=== PATIENT | male | born 1995 | race Caucasian/White ===

== ENCOUNTER 2020-04-07 07:32 | Emergency (ER) | payer SELFPAY ==
[~2020-04-07] VITALS: Ht 188 cm; Wt 97.5 kg
--- NOTE | 2020-04-07 08:01 | Emergency Department Note ---
History of Present Illnes History of Present Illness Chief Complaint: Extremity Trauma/Pain History of Present Illness This is a 24 year old male PAIN FROM LEFT LOWER BACK DOWN LEFT LEG X 2 WKS. NO TRAUMA NO INJURY NO HX SCIATICA. PT WITH [facility] FROM [facility] (says he was there yesterday for same, xray done and sent home). PT AMBULATORY STEADY GAIT. NAD. PLEASANT. 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 Arrival Mode: [facility] [employer]: See EMS Report Onset (how long ago): month(s) (2 months worse in 2 weeks) Location: left lower lumbar Quality: pain Radiation: Reports extremity (left leg to toes) Severity: moderate Onset quality: gradual Timing of current episode: constant Chronicity: new Context: Reports recent illness Relieving factors: rest Exacerbating factors: other (lifting) Associated symptoms: Reports other (no bowel/bladder incontinence, no motor/sensory deficits); Denies fever/chills, Denies weakness Treatments prior to arrival: none Past Medical/Family History Physician Review I have reviewed the patient's past medical and family history. Any updates have been documented here. 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) Physically hurt or threatened: No Family History Family history of heart diseas: No Other Any Pre-Existing Lines (PICC,: No Review of Systems Review of Systems Constitutional: Reports no symptoms EENTM: Reports no symptoms Cardiovascular: Reports no symptoms Respiratory: Reports no symptoms Gastrointestinal: Reports no symptoms Genitourinary: Reports no symptoms Musculoskeletal: Reports as per HPI, Reports back pain Integumentary: Reports no symptoms Neurological: Reports no symptoms Psychological: Reports no symptoms Endocrine: Reports no symptoms Hematological/Lymphatic: Reports no symptoms Physical Exam Related Data Allergies: Coded Allergies: No Known Allergies (Unverified , 04/07/20) Triage Vital Signs Vital Signs Date Time Temp Pulse Resp B/P (MAP) Pulse Ox O2 Delivery O2 Flow Rate FiO2 04/07/20 07:36 97.8 62 14 126/77 100 Room Air Vital signs reviewed: Yes Physical Exam CONSTITUTIONAL Constitutional: Present well-developed, Present well-nourished HENT HENT: Present normocephalic, Present atraumatic, Present oropharynx clear/moist, Present nose normal HENT L/R: Present left ext ear normal, Present right ext ear normal EYES Eyes: Reports PERRL, Reports conjunctivae normal NECK Neck: Present ROM normal PULMONARY Pulmonary: Present effort normal, Present breath sounds normal CARDIOVASCULAR Cardiovascular: Present regular rhythm, Present heart sounds normal, Present capillary refill normal, Present normal rate; Absent murmur GASTROINTESTINAL Abdominal: Present soft, Present nontender, Present bowel sounds normal GENITOURINARY Genitourinary: Present exam deferred SKIN Skin: Present warm, Present dry, Present other (multiple healing ulcerative lesions on arms & legs, none appear infected) MUSCULOSKELETAL Musculoskeletal: Present ROM normal, Present other (mild tenderness left lower lumbar, negative SLR, nl DTR's) NEUROLOGICAL Neurological: Present alert, Present oriented x 3, Present no gross motor or sensory deficits; Absent sensory deficit, Absent abnormal gait, Absent weakness PSYCHOLOGICAL Psychological: Present mood/affect normal, Present judgement normal Assessment & Plan Medical Decision Making [facility] home Reassessment Reassessment no true emergency - explained he needs PCP and likely outpatient MRI, Will give Rx for po Toradol and Robaxin Assessment & Plan Final Impression: (1) Sciatica Depart Disposition: HOME, SELF-CARE Last Vital Signs Date Time Temp Pulse Resp B/P (MAP) Pulse Ox O2 Delivery O2 Flow Rate FiO2 04/07/20 07:36 97.8 62 14 126/77 100 Room Air JEROMY TAMAYO MD Apr 07, 2020 08:01
--- OUTSIDE RECORDS SUMMARY | 2020-04-07 08:18 | XMS REPORT | Clinical Summary ---
Author Author CHITRA SvitStyleMin[facility]StartSpanish[facility] Address Unknown Phone Unavailable Care Team Providers Care Service Cashier Name Role Phone PCP Unavailable Allergies Comments Active Allergy Reactions Severity Noted Date Penicillins 03/16/2020 Medications Not on file Active Problems Problem Noted Date Cellulitis of left lower extremity 03/19/2020 Acute midline back pain, unspecified back location 0 03/17/2020 Acute bacterial endocarditis 03/17/2020 IV drug abuse 03/17/2020 Encounters Care Team Description Date Type Specialty 03/19/2020 Orders Only General Internal Az Deepak Law MD Becker, MD Joe Valdovinos, MD Maksim Zuniga, Elo Marcano MD Acute midline back pain, unspecified waldemar k location (Primary Dx); Subacute bacterial endocarditis; Acute bacterial endocarditis; IV drug abuse (HCC); Cellulitis of left lower extremity; Septic embolism (HCC); Bacterial endocarditis, unspecified chronicity; Tricuspid valve regurgitation due to infection 03/16/2020 [facility] General Internal Az mena - Encounter 03/19/2020 03/16/2020 Orders Only General Internal Az mena 03/16/2020 Travel after 04/07/2019 Social History Date Tobacco Use Types Packs/Day Years Used Current Every Day Smoker Alcohol Use Drinks/Week oz/Week Comments No Alcohol Habits Answer Date Recorded How often do you have a drink containing alcohol? Never 03/19/2020 How many drinks containing alcohol do you have on No t asked a typical day when you are drinking? How often do you have six or more drinks on one Not asked occasion? Sex Assigned at Date Recorded Not on file Industry Job Start Date Occupation Not on file Not on file Not on file Travel End Travel History Travel Start No recent travel history available. Last Filed Vital Signs Time Taken Vital Sign Reading 03/19/2020 2:44 PM CDT Blood Pressure 147/69 03/19/2020 2:44 PM CDT Pulse 82 03/19/2020 2:44 PM CDT Temperature 36.7 C (98 F) 03/19/2020 2:44 PM CDT Respiratory Rate 18 03/19/2020 2:44 PM CDT Oxygen Saturation 100% - Inhaled Oxygen - Concentration 03/16/2020 12:42 PM CDT Weight 93 kg (205 lb) 03/16/2020 12:42 PM CDT Height 198.1 cm (6' 6") 03/16/2020 12:42 PM CDT Body Mass Index 23.69 Plan of Treatment Not on file Procedures Comments Procedure Name Priority Date/Time Associated Diag nosis REPORT OF PROCEDURE - 03/21/2020 ENDOSCOPY SCAN 10:00 AM CDT ECG 12-LEAD Routine 03/19/2020 4:28 PM CDT Procedure Note - Interface, External Ris In - 03/19/2020 4:27 PM CDT Ventricula r Rate 74 BPM Atrial Rate 74 BPM P-R Interval 152 ms QRS Duration 88 ms Q-T Interval 386 ms QTC Calculatio n(Bazett) 428 ms P [place] 47 degrees R [place] 9 degrees T [place] 65 degrees Normal sinus rhythm Normal ECG No previous ECGs available ECG 12-LEAD SAUNDRA 03/19/2020 4:28 PM CDT LIMITED 2D ECHOCARDIOGRAM Today 03/19/2020 11:52 AM CDT VANCOMYCIN LEVEL, TROUGH Timed 03/18/2020 4:[address] THORACIC SPINE WITH IV SAUNDRA 03/17/2020 CONTRAST 11:[address] CHEST WITHOUT IV SAUNDRA 03/17/2020 CONTRAST 11:18 PM CDT SARS-COV2/RT-PCR ([facility] & SAUNDRA 03/17/2020 REF LABS) 9:58 PM CDT HEPATITIS PANEL, ACUTE Routine 03/17/2020 5:42 PM CDT HIV-1 ANTIGEN WITH Routine 03/17/2020 HIV-1/2 ANTIBODY 5:42 PM CDT D-DIMER Routine 03/17/2020 5:42 PM CDT FERRITIN Routine 03/17/2020 5:42 PM CDT CONT WAVE PULSED DOPPLER Routine 03/17/2020 4:56 PM CDT LACTATE DEHYDROGENASE Add-On 03/17/2020 ([facility]) 11:28 AM CDT BASIC METABOLIC PANEL (7) STAT 03/17/2020 11:[address] LUMBAR SPINE WITH IV STAT 03/17/2020 CONTRAST 3:25 AM CDT ECG 12-LEAD STAT 03/16/2020 10:28 PM CDT SARS-COV2/RT-PCR ([facility] & STAT 03/16/2020 REF LABS) 9:54 PM CDT BLOOD CULTURE STAT 03/16/2020 9:54 PM CDT BLOOD CULTURE STAT 03/16/2020 9:54 PM CDT CBC W/PLT COUNT & AUTO STAT 03/16/2020 DIFFERENTIAL 9:53 PM CDT C-REACTIVE PROTEIN STAT 03/16/2020 9:53 PM CDT COMPREHENSIVE METABOLIC STAT 03/16/2020 PANEL 9:53 PM CDT TROPONIN I STAT 03/16/2020 9:53 PM CDT CBC W/PLT COUNT & AUTO STAT 03/16/2020 DIFFERENTIAL 9:53 PM CDT VENOUS DOPPLER LEG, LEFT STAT 03/16/2020 6:00 PM CDT XR CHEST 1 VIEW STAT 03/16/2020 PORTABLE/BEDSIDE 2:29 PM CDT after 04/07/2019 Results * EKG-SCANNED (03/21/2020 10:00 AM CDT) Narrative Performed At This result has an attachment that is n ot available. * ECG 12 lead (03/19/2020 4:28 PM CDT) Only the most recent of 2 results within the time period is included. Specimen Narrative Performed At Ventricular Rate 74 BPM GE MUSE Atrial Rate 74 BPM P-R Interval 152 ms QRS Duration 88 ms Q-T Interval 386 ms QTC Calculation(Bazett) 428 ms P [place] 47 degrees R [place] 9 degrees T [place] 65 degrees Normal sinus rhythm Normal ECG No previous ECGs available Confirmed by MD CASTRO JOSEPH P ([id number]) on 03/20/2020 6:32:06 AM Procedure Note Interface, External Ris In - 03/20/2020 6:32 AM CDT Ventricular Rate 74 BPM Atrial Rate 74 BPM P-R Interval 152 ms QRS Duration 88 ms Q-T Interval 386 ms QTC Calculation(Bazett) 428 ms P [place] 47 degrees R [place] 9 degrees T [place] 65 degrees Normal sinus rhythm Normal ECG No previous ECGs available Confirmed by MD CASTRO JOSEPH P ([id number]) on 03/20/2020 6:32:06 AM Performing Organization Address City/State/Zipcode Ph one Number GE MUSE * Limited 2D Echocardiogram (03/19/2020 11:52 AM CDT) Ejection Fraction [facility] Specimen Narrative Performed At Transthoracic Echocardiography Report (TTE) [facility] Demographics [facility] Patient Name DIYA FLOWERS e of Study 03/19/2020 [id number] GenderMale Visit Number [id number] Rickie fraser [id number] Room Number 2109 Number Date of Birth1995 Referring Physician HITESH BRADFORD Age24 year(s) 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 Fran Farrar MD [facility] Physician Procedure Type of Study TTE procedure:LIMITED 2D ECHOCARDIOGRAM (Routine) Indications:Suspected infective endocar ditis with positive cultures or new murmur. Clinical History HGB 11.0 HCT 35.3 % HCV, IV DRUG USER (METH, HEROIN), SMOKE R Height: 78 inches Weight: 92.99 kg (205 lbs) BSA: 2.28 m^2 BMI: 23.69 kg/m^2 HR: 70 bpm BP: 110/776 mmHg Summary The left ventricle is chamber size (by vol index) is normal (male - LVED vol - 34-74ml/m2). All of the LV segmen ts contract normally . LVEF by Matias's method of disk assessment is normal (>60%) . A linear echodense mass is visualized o n the tricuspid valve. The mass measures 8.65 mm x 3.47 mm. Severe tricuspid regurgitation. RV chamber size is mildly enlarged . Gl obal RV systolic function is mildly reduced . Previous Study No prior studies available for comparis on. Signature Findings Technical Quality: Technically adequate exam. Left The left ventricle is chamber size (by vol index) is normal Ventricle(male - LVED vol - 34- 74ml/m2). LV septal thickness is normal (0.6-1.1cm) . LV posterior wall thickness is mildly increased (1.2-1.4cm) . All of the LV segments contract normally . Global LV s ystolic function normal . LVEF by Matias's method of disk ass essment is normal (>60%) . Left AtriumLA size is normal (16-34 ml/m2) . RightRV chamber size is mildly enlarged . VentricleGlobal RV systolic fun ction is mildly reduced . Right Atrium RA size is normal. Aortic Valve Mild AoV cusp thickening. Mitral Valve Mild MV leaflet thickening . TricuspidA linear echodense mas s is visualized on the tricuspid valve. ValveThe mass measures 8.65 mm x 3.47 mm. Severe tric uspid regurgitation. Pulmonic Normal PV structure. Valve AortaAortic root size ( SInus of Valsalva diameter) is normal . PericardiumNo pericardial effusion is visualized. Chambers/Structures Left Atrium LA Volume: 61.46 ml LA Area: 20.55 cm^2 LA Vol. Index: 27 ml/m^2 Left Ventricle LVIDd: 4.51 cm LVIDs: 2.74 cm LV Septum Diastolic: 0.99 cm LV PW Diastolic: 1.28 cm LV FS: 39.3 % LVEDV Matias's:151.73 ml LVESV Matias's:58.61 ml LVEDVI: 67 ml/m^2 LVEF Matias's: 61.4 % LVESVI: 26 ml/m^2 LVOT Diameter: 1.91 cm Right Atrium RA Vol. (Sngl Plane): 75.84 ml Aorta Ao Root S of Fern.: 3.16 cm Doppler/Quantitative Measurements LVOT LVOT Diameter: 1.91 cm LVOT Area: 2.87 cm^2 Procedure Note Interface, External Ris In - 03/19/2020 2:11 PM CDT Transthoracic Echocardiography Report (TTE) Demographics Patient Name DIYA FLOWERS Date of Study 03/19/2020 Gender Male Visit Number [id number] Race Unknown Room Number 2109 Number Date of 1995 Referring Physician HITESH BRADFORD Age 24 year(s) Division Plant Engineer Dottie Mo RDCS [employer] [place] Prince, Interpreting Donta Castro MD RDCS Physician Procedure Type of Study TTE procedure:LIMITED 2D ECHOCARDIOGRAM (Routine) Indications:Suspected infective endocarditis with positive cultures or new murmur. Clinical History HGB 11.0 HCT 35.3 % HCV, IV DRUG USER (METH, HEROIN), SMOKER Height: 78 inches Weight: 92.99 kg (205 lbs) BSA: 2.28 m^2 BMI: 23.69 kg/m^2 HR: 70 bpm BP: 110/776 mmHg Summary The left ventricle is chamber size (by vol index) is normal (male - LVED vol - 34-74ml/m2). All of the LV segments contract normally . LVEF by Matias's method of disk assessment is normal (>60%) . A linear echodense mass is visualized on the tricuspid valve. The mass measures 8.65 mm x 3.47 mm. Severe tricuspid regurgitation. RV chamber size is mildly enlarged . Global RV systolic function is mildly reduced . Previous Study No prior studies available for comparison. Signature Findings Technical Quality: Technically adequate exam. Left The left ventricle is chamber size (by vol index) is normal Ventricle (male - LVED vol - 34-74ml/m2). LV septal thickness is normal (0.6-1.1cm). LV posterior wall thickness is mildly increased (1.2-1.4cm) . All of the LV segments contract normally . Global LV systolic function normal . LVEF by Matias's method of disk assessment is normal (>60%) . Left Atrium LA size is normal (16-34 ml/m2) . Right RV chamber size is mildly enlarged . Ventricle Global RV systolic function is mildly reduced . Right Atrium RA size is normal. Aortic Valve Mild AoV cusp thickening. Mitral Valve Mild MV leaflet thickening. Tricuspid A linear echodense mass is visualized on the tricuspid valve. Valve The mass measures 8.65 mm x 3.47 mm. Severe tricuspid regurgitation. Pulmonic Normal PV structure. Valve Aorta Aortic root size (SInus of Valsalva diameter) is normal . Pericardium No pericardial effusion is visualized. Chambers/Structures Left Atrium LA Volume: 61.46 ml LA Area: 20.55 cm^2 LA Vol. Index: 27 ml/m^2 Left Ventricle LVIDd: 4.51 cm LVIDs: 2.74 cm LV Septum Diastolic: 0.99 cm LV PW Diastolic: 1.28 cm LV FS: 39.3 % LVEDV Matias's:151.73 ml LVESV Matias's:58.61 ml LVEDVI: 67 ml/m^2 LVEF Matias's: 61.4 % LVESVI: 26 ml/m^2 LVOT Diameter: 1.91 cm Right Atrium RA Vol. (Sngl Plane): 75.84 ml Aorta Ao Root S of Fern.: 3.16 cm Doppler/Quantitative Measurements LVOT LVOT Diameter: 1.91 cm LVOT Area: 2.87 cm^2 Performing Organization Address City/State/Zipcode Ph one Number [facility] * Vancomycin level, trough (03/18/2020 4:50 PM CDT) Vancomycin Tr 13.1 10.0 - 20.0 ug/mL [facility] Specimen Blood Narrative Performed At Mess Cook ID - ASHLEE Gutierrez [facility] Performing Organization Address City/State/[facility] Ph one Number [facility] [address] [address] MED[address] * CT spine thoracic with IV contrast (03/17/2020 11:18 PM CDT) Specimen Narrative Performed At FINAL REPORT [facility] RIS EXAM: CT thoracic spine without contras t CLINICAL HISTORY: Lower thoracic spine pain and recent bacteremia. TECHNIQUE: CT of the thoracic spine was performed without intravenous contrast administration.This exam w as performed according to our departmental dose optimization program which includes automated exposure control, adjustment of the mA and/or kV according to patient's size and/or use of iterative reconstructive technique. COMPARISON:None FINDINGS: Vertebral body heights and alignment ar e maintained. The articular facets and posterior elements are intac t. The intervertebral disc space heights are preserved. There is n o acute fracture. There is no significant spinal canal or neural foraminal stenosis. There is no prevertebral soft tissue sw elling. The paraspinal soft tissues are unremarkable. There are multiple bilateral pulmonary nodules as well as small patchy opacities in the right lower lob e. The pulmonary nodules have a peripheral and basilar predominance. Some nodules are cavitary. 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 There is a partially imaged simple cyst in the right kidney. IMPRESSION: Multiple pulmonary nodules, which given history are compatible with septic emboli. No gross abnormality in the thoracic sp ine. Signed: Leo Gonzalez MD Report Verified Date/Time: 0 23:40:45 Procedure Note Interface, External Ris In - 03/17/2020 11:43 PM CDT FINAL REPORT EXAM: CT thoracic spine without contrast CLINICAL HISTORY: Lower thoracic spine pain and recent bacteremia. TECHNIQUE: CT of the thoracic spine was performed without intravenous contrast administration. This exam was performed according to our departmental dose optimization program which includes automated exposure control, adjustment of the mA and/or kV according to patient's size and/or use of iterative reconstructive technique. COMPARISON: None FINDINGS: Vertebral body heights and alignment are maintained. The articular facets and posterior elements are intact. The intervertebral disc space heights are preserved. There is no acute fracture. There is no significant spinal canal or neural foraminal stenosis. There is no prevertebral soft tissue swelling. The paraspinal soft tissues are unremarkable. There are multiple bilateral pulmonary nodules as well as small patchy opacities in the right lower lobe. The pulmonary nodules have a peripheral and basilar predominance. Some nodules are cavitary. There is an aberrant right subclavian artery. There is a partially imaged simple cyst in the right kidney. IMPRESSION: Multiple pulmonary nodules, which given history are compatible with septic emboli. No gross abnormality in the thoracic spine. Signed: Leo Gonzalez MD Report Verified Date/Time: 03/17/2020 23:40:45 Performing Organization Address City/State/Zipcode Ph one Number [facility] * CT chest without IV contrast (03/17/2020 11:18 PM CDT) Specimen Narrative Performed At FINAL REPORT [facility] EXAM: CT of the chest, without contrast CLINICAL HISTORY:evaluate for pneum onia and cavitary lesions Technique: CT of the chest was performe d without intravenous contrast administration. This exam was performed according to our departmental dose optimization program which include s automated exposure control, adjustment of the mA and/or kV accordin g to patient's size and/or use of iterative reconstructive technique. COMPARISON:None FINDINGS: LOWER NECK: Within normal limits. AIRWAYS AND LUNGS: Patent central trach eobronchial tree. Multilobar peripheral and basilar nodular opacitie s, some of which are cavitary. Small patchy opacities in the right eliecer g base are noted. Findings are compatible with septic emboli. Calcifie d right lower lobe granuloma. PLEURA: No pleural effusion or pneumoth orax. VESSELS: Within normal limits. HEART: Normal heart size. No pericardia l effusion. DALJIT AND MEDIASTINUM: Within normal mane its. VISUALIZED UPPER ABDOMEN: Partially argentina ged simple right upper pole renal cyst. SOFT TISSUES: Within normal limits. BONES: Within normal limits. IMPRESSION: Findings compatible with septic emboli. Signed: Leo Gonzalez MD Report Verified Date/Time: 0 23:33:12 Procedure Note Interface, External Ris In - 03/17/2020 11:35 PM CDT FINAL REPORT EXAM: CT of the chest, without contrast CLINICAL HISTORY: evaluate for pneumonia and cavitary lesions Technique: CT of the chest was performed without intravenous contrast administration. This exam was performed according to our departmental dose optimization program which includes automated exposure control, adjustment of the mA and/or kV according to patient's size and/or use of iterative reconstructive technique. COMPARISON: None FINDINGS: LOWER NECK: Within normal limits. AIRWAYS AND LUNGS: Patent central tracheobronchial tree. Multilobar peripheral and basilar nodular opacities, some of which are cavitary. Small patchy opacities in the right lung base are noted. Findings are compatible with septic emboli. Calcified right lower lobe granuloma. PLEURA: No pleural effusion or pneumothorax. VESSELS: Within normal limits. HEART: Normal heart size. No pericardial effusion. DALJIT AND MEDIASTINUM: Within normal limits. VISUALIZED UPPER ABDOMEN: Partially imaged simple right upper pole renal cyst. SOFT TISSUES: Within normal limits. BONES: Within normal limits. IMPRESSION: Findings compatible with septic emboli. Signed: Leo Gonzalez MD Report Verified Date/Time: 03/17/2020 23:33:12 Performing Organization Address City/State/Zipcode Ph one Number GE RIS * SARS-CoV2/RT-PCR (Symptomatic ONLY) (03/17/2020 9:58 PM CDT) Only the most recent of 2 results within the time period is included. SARS-COV2/RT-PCR Negative Not Detected, Negative [facility] SARS-COV-2 [facility] Specimen Other Narrative Performed At Negative result for this test determine s that SARS-CoV-2 RNA was not present in the specimen above the Limit of Detecti on (LOD).However, Negative results do [facility] not preclude SARS-CoV-2 infection and s hould not be used as the sole basis for treatment or patient management decisio ns. Negative results must be combined with clinical observations, patient his tory, and epidemiological information. A false negative result may occur if a sp ecimen is improperly collected, transported or handled.A false nega tive result should be considered if patient's recent exposures or clinical presentation indicate that COVID-19 (SARS-CoV-2) is likely and diagnostic t ests for other causes of illness are negative.Re-testing should be consi dered in cases of suspected false negatives. The limit of detection for this assay i s 800 copies/mL. This SARS CoV-2 test is a real-time RT- PCR test intended for the qualitative detection of nucleic acid from SARS-CoV -2 in a nasopharyngeal swab specimen collected from individuals suspected of COVID-19 by their healthcare provider. This test has not been Food and Drug Ad ministration (FDA) cleared or approved.This is a modified version of an approved Emergency Use Authorization (EUA) and is in the proce ss of review by the FDA. Once authorized by the FDA, the issued EUA w ill be effective until the declaration that circumstances exist justifying the authorization of the emergency use of in vitro diagnostic tests for detection an d/or diagnosis of COVID-19 is terminated under Section 564(b)(2) of the Act or t he EUA is revoked under Section 564(g) of the Act. Fact Sheet for Healthcare Providers: https://www.[employer]/sites/default/files/product/documents/Fact_Sheet_HC_Provi jzve_Ptza_BJKR-MbF-4.pdf Fact Sheet for Healthcare Patients: https://www.[employer]/sites/default/files/product/documents/Fact_Sheet_Patients _Ncwi_SXIW-CtY-0.pdf Performing Laboratory: [address] [place] [address] Performing Organization Address City/State/Zipcode Ph one [facility] [address] [place] [address] [address] [facility] * HIV-1 Antigen with HIV-1/2 Antibody (03/17/2020 5:42 PM CDT) HIV-1 Antigen with HIV Nonreactive Nonreactive 1&2 Antibody [facility] Specimen Blood Narrative Performed At Mess Cook ID - DB [facility] Performing Organization Address [facility] one [address] [facility] * Hepatitis panel, acute (03/17/2020 5:42 PM CDT) Hep A IgM Nonreactive Nonreactive [facility] Hep B C IgM Nonreactive Nonreactive [facility] Hepatitis C Ab Reactive (A) Nonreactive [facility] HBsAg Screen Nonreactive Nonreactive [facility] Specimen Blood Narrative Performed At Mess Cook ID - DB [facility] Performing Organization Address [facility] one [address] [facility] * D-dimer (03/17/2020 5:42 PM CDT) D-Dimer, Quant 0.54 (H) <0.50 MG/L FEU [facility] Specimen Blood Narrative Performed At Intended Use: The D-Dimer Assay can be used to aid in the diagnosis of Deep Vein Thrombosis (DVT) and Pulmonary Embolism Disease (PED) . [facility] In patients with low pre-test probabili ty, various studies concerning STA Liatest D-dimer test have reported that with a cutoff value of 0.50 MG/L FEU, the Negative Predictive Value (NPV) reg arding the exclusion of thrombosis is within 95-100% range. Performing Organization Address [facility]/State/Zipcode Ph one Number [facility] [address] [place], [place] [address] [facility] * Ferritin (03/17/2020 5:42 PM CDT) Ferritin 187.46 5.00 - 275.00 ng/mL [facility] Specimen Blood Narrative Performed At Mess Cook ID - ASHLEE Gutierrez [facility] Performing Organization Address City/[facility]/[place] Ph one Number [address] [facility] * Lactate dehydrogenase (LDH) (03/17/2020 11:28 AM CDT) LDH 562 (H)Comment: Specimen 125 - 220 U/L [facility] Specimen Blood Narrative Performed At Mess Cook ID - ASHLEE Gutierrez [facility] Performing Organization Address [facility]/[place] Ph one Number [address] [facility] * Basic metabolic panel (Na, K+, Cl, CO2, Glu, Ca, BUN, Cr) (03/17/2020 11:28 AM CDT) Sodium 136 136 - 145 meq/L [facility] Potassium 4.0Comment: Specimen slightly 3.5 - 5.1 meq/L [facility] Chloride 105 98 - 107 meq/L [facility] CO2 25 22 - 29 meq/L [facility] BUN 2 (L) 7 - 21 mg/dL [facility] Creatinine 0.55 (L)Comment: Specimen 0.57 - 1.25 mg/dL [facility] slightly hemolyzed [facility] Glucose 97 70 - 105 mg/dL [facility] Calcium 9.2 8.4 - 10.2 mg/dL [facility] EGFR 180Comment: ESTIMATED GFR IS mL/min/1.73 sq m NOT ACCURATE CREATININE [facility] CLEARANCE IN PREDICTING GLOMERULAR FILTRATION RATE. ESTIMATED GFR IS NOT APPLICABLE FOR DIALYSIS PATIENTS. Specimen Blood Narrative Performed At Mess Cook ID - PIAYA L [facility] Performing Organization Address City/State/Zipcode Ph one Number [facility] [address] [place], [place] [address] * CT spine lumbar with IV contrast (03/17/2020 3:25 AM CDT) Specimen Narrative Performed At FINAL REPORT [facility] CT, SPINE, LUMBAR, WITH IV CONTRAST CLINICAL HISTORY: Back pain, uncomplica ian (Ped 0-18y) Back Pain, Hx of IVDA and Endocarditis COMPARISON: None TECHNIQUE: Multiple axial CT images of the lumbar spine were obtained with contrast. Sagittal and coronal 2D reconstructions were created. This exam was performed according to [facility] departmental dose-optimization program, which includ es automated exposure control, adjustment of the mA and/or kV accordin g to patient size and/or use of the iterative reconstruction techniq ue. FINDINGS: No acute osseous fracture or traumatic malalignment. No suspicious osseous lesion. No paraspinal mass. Right kidney 4.2 cm cyst. No pathologic enhancement. Disc levels: L1-2: No significant disc bulge, centra l spinal canal or neural foraminal stenosis. L2-3: No significant disc bulge, centra l spinal canal or neural foraminal stenosis. L3-4: Small disc bulge without high-gra de osseous central spinal canal or neural foraminal stenosis. L4-5: Small disc bulge without high-gra de osseous central spinal canal or neural foraminal stenosis. L5-S1: Small disc bulge without high-gr marcia osseous central spinal canal stenosis. Moderate bilateral neur al foraminal stenosis present. Lungs demonstrate basilar groundglass o pacities. Right lung base calcified granuloma. IMPRESSION: Bibasilar pulmonary groundglass opaciti es. Commonly reported imaging features of (COVID-19 or viral) pneumon ia are present. Other processes such as influenza pneumonia a nd organizing pneumonia, as can be seen with drug toxicity and conn ective tissue disorder, can cause a similar imaging pattern. CT lumbar spine without evidence of acu te osseous abnormality. No pathologic enhancement or CT evidence o f discitis/osteomyelitis. Small disc bulges at L3-4, L4-5 and L5- S1. L5-S1 moderate bilateral neural foraminal stenosis. Right kidney 4.2 cm cyst. Signed: Darryl Austin MD Report Verified Date/Time: 0 03:48:21 Procedure Note Interface, External Ris In - 03/17/2020 3:[address] CDT FINAL REPORT CT, SPINE, LUMBAR, WITH IV CONTRAST CLINICAL HISTORY: Back pain, uncomplicated (Ped 0-18y) Back Pain, Hx of IVDA and Endocarditis COMPARISON: None TECHNIQUE: Multiple axial CT images of the lumbar spine were obtained with contrast. Sagittal and coronal 2D reconstructions were created. This exam was performed according to our departmental dose-optimization program, which includes automated exposure control, adjustment of the mA and/or kV according to patient size and/or use of the iterative reconstruction technique. FINDINGS: No acute osseous fracture or traumatic malalignment. No suspicious osseous lesion. No paraspinal mass. Right kidney 4.2 cm cyst. No pathologic enhancement. Disc levels: L1-2: No significant disc bulge, central spinal canal or neural foraminal stenosis. L2-3: No significant disc bulge, central spinal canal or neural foraminal stenosis. L3-4: Small disc bulge without high-grade osseous central spinal canal or neural foraminal stenosis. L4-5: Small disc bulge without high-grade osseous central spinal canal or neural foraminal stenosis. L5-S1: Small disc bulge without high-grade osseous central spinal canal stenosis. Moderate bilateral neural foraminal stenosis present. Lungs demonstrate basilar groundglass opacities. Right lung base calcified granuloma. IMPRESSION: Bibasilar pulmonary groundglass opacities. Commonly reported imaging features of (COVID-19 or viral) pneumonia are present. Other processes such as influenza pneumonia and organizing pneumonia, as can be seen with drug toxicity and connective tissue disorder, can cause a similar imaging pattern. CT lumbar spine without evidence of acute osseous abnormality. No pathologic enhancement or CT evidence of discitis/osteomyelitis. Small disc bulges at L3-4, L4-5 and L5-S1. L5-S1 moderate bilateral neural foraminal stenosis. Right kidney 4.2 cm cyst. Signed: Darryl Austin MD Report Verified Date/Time: 03/17/2020 03:48:21 Performing Organization Address [facility] Ph one Number GE RIS * Blood Culture - Routine (Left Venipuncture) (03/16/2020 9:54 PM CDT) Only the most recent of 2 results within the time period is included. Result No growth in 5 days [facility] Specimen Blood Performing Organization Address [facility] one Number [place] [address] [phone] [place] [address] * C-Reactive Protein (03/16/2020 9:53 PM CDT) CRP 3.96 (H) 0.00 - 0.50 mg/dL [facility] Specimen Blood Narrative Performed At Mess Cook ID - PIAYA L [facility] Performing Organization Address [facility] one Number [place] [address] [facility] * CBC with platelet count + automated diff (03/16/2020 9:53 PM CDT) WBC 9.6 3.5 - 10.5 K/L [facility] RBC 4.39 (L) 4.63 - 6.08 M/L [facility] Hemoglobin 11.0 (L) 13.7 - 17.5 GM/DL [facility] Hematocrit 35.3 (L) 40.1 - 51.0 % [facility] MCV 80.4 79.0 - 92.2 fL [facility] MCH 25.1 (L) 25.7 - 32.2 pg [facility] MCHC 31.2 (L) 32.3 - 36.5 GM/DL [facility] RDW 18.6 (H) 11.6 - 14.4 % [facility] Platelets 322 150 - 450 K/CU MM [facility] MPV 11.0 9.4 - 12.4 fL [facility] nRBC 0 0 - 0 /100 WBC [facility] % Neutros 56 % [facility] % Lymphs 34 % [facility] % Monos 9 % [facility] % Eos 1 % [facility] % Baso 0 % [facility] # Neutros 5.34 1.78 - 5.38 K/L [facility] # Lymphs 3.30 1.32 - 3.57 K/L [facility] # Monos 0.86 (H) 0.30 - 0.82 K/L [facility] # Eos 0.05 0.04 - 0.54 K/L [facility] # Baso 0.01 0.01 - 0.08 K/L [facility] Immature 0 0 - 1 % [facility] Granulocytes-Relative [facility] Specimen Blood Performing Organization Address City/State/Zipcode Ph one Number [facility] [address] [place], [place] [address] [facility] * Troponin I (03/16/2020 9:53 PM CDT) Troponin I 0.02 0.00 - 0.03 ng/mL [facility] Specimen Blood Narrative Performed At Troponin I (TnI) levels must be interpreted in the co ntext of the presenting symptoms and the clinical findings. Elevated TnI leve ls indicate myocardial [facility] damage, but are not specific for ischem ic heart disease. Elevated TnI levels are seen in patients with other cardiac con ditions (including myocarditis and congestive heart failure), and slight T nI elevations occur in patients with other conditions, including sepsis, winnie al failure, acidosis, acute neurological disease, and persistent tachyarrhythmia . Mess Cook ID - PIAYA L Performing Organization Address City/State/Zipcode Ph one Number [facility] [address] [place], [place] [address] [facility] * Comprehensive metabolic panel (03/16/2020 9:53 PM CDT) Protein, Total Comment: Specimen markedly hemolyzed [facility] B#[id number] This is a corrected result. Previous result was 10.0 gm/dL on 03/16/2020 at 2331 CDT Albumin Comment: Specimen markedly hemolyzed [facility]#[id number] This is a corrected result. Previous result was 3.6 g/dL on 03/16/2020 at 2331 CDT Alkaline Phosphatase Comment: [facility] Specimen markedly hemolyzed [facility] B#[id number] This is a corrected result. Previous result was 127 U/L on 03/16/2020 at 2331 CDT Total Bilirubin Comment: Specimen markedly hemolyzed [facility] B#[id number] This is a corrected result. Previous result was 0.3 mg/dL on 03/16/2020 at 2331 CDT Sodium Comment: Specimen markedly hemolyzed [facility] B#[id number] This is a corrected result. Previous result was 133 meq/L on 03/16/2020 at 2331 CDT Potassium Comment: Specimen markedly hemolyzed [facility]#[id number] This is a corrected result. Previous result was 5.2 meq/L on 03/16/2020 at 2331 CDT Chloride Comment: Specimen markedly hemolyzed [facility]#[id number] This is a corrected result. Previous result was 102 meq/L on 03/16/2020 at 2331 CDT CO2 Comment: Specimen markedly hemolyzed [facility] B#[id number] This is a corrected result. Previous result was 22 meq/L on 03/16/2020 at 2331 CDT BUN Comment: Specimen markedly hemolyzed [facility] B#[id number] This is a corrected result. Previous result was 3 mg/dL on 03/16/2020 at 2331 CDT Creatinine Comment: Specimen markedly hemolyzed [facility] B#[id number] This is a corrected result. Previous result was 0.62 mg/dL on 03/16/2020 at 2331 CDT Glucose Comment: Specimen markedly hemolyzed [facility] B#[id number] This is a corrected result. Previous result was 90 mg/dL on 03/16/2020 at 2331 CDT Calcium Comment: Specimen markedly hemolyzed [facility] B#[id number] This is a corrected result. Previous result was 9.0 mg/dL on 03/16/2020 at 2331 CDT AST Comment: Specimen markedly hemolyzed [facility] B#[id number] This is a corrected result. Previous result was 69 U/L on 03/16/2020 at 2331 CDT ALT Comment: Specimen markedly hemolyzed [facility] B#[id number] This is a corrected result. Previous result was 31 U/L on 03/16/2020 at 2331 CDT EGFR Comment: ESTIMATED GFR IS NOT [facility] ACCURATE CREATININE CLEARANCE IN PREDICTING GLOMERULAR FILTRATION RATE. ESTIMATED GFR IS NOT APPLICABLE FOR DIALYSIS PATIENTS. This is a corrected result. Previous result was 157 mL/min/1.73 sq m on 03/16/2020 at 2331 CDT Specimen Blood Narrative Performed At Mess Cook ID - PIAYA L [facility] Performing Organization Address City/State/Zipcode Ph one Number [address] [address] [facility] * Venous doppler leg, left (03/16/2020 6:00 PM CDT) Ejection Fraction [facility] Specimen Impressions Performed At Left Impression [facility] 1. There is no deep venous obstruction in the common femoral, profunda [facility] femoral, femoral, popliteal or posterio r tibial veins. 2. The peroneal veins could not be visu alized. 3. There is no superficial venous obstr uction in the great saphenous vein. Conclusions Summary Venous duplex imaging and compression o f the left lower extremity were performed. The veins were adequately vi sualized. The left venous system was patent and compressible with no sushma dence of thrombus where visualzied. The venous Doppler waveforms were phasi c with respiration. Signature Velocities are measured in cm/s ; Diame ters are measured in cm Narrative Performed At [facility] - Lower Extremities DVT Study [facility] Demographics [facility] Patient NameDIYA FLOWERS Date of Study 03/16/2020 24 Visit [id number] Date of 1995 Referring Dharmesh Portillo id Room Number ED21 Physician Division Plant Engineer Bernice Belcher RV T Physician Procedure Type of Study: Veins: Lower Extremities DVT Study, SUSI OUS DOPPLER LEG, LEFT. Indications for Study:Left Leg Swelling . Patient Status:STAT. Study Location:Portable. Technical Quality:Adequate visualizatio n. Procedure Note Interface, External Ris In - 03/17/2020 11:49 AM CDT [facility] - Lower Extremities DVT Study Demographics Patient Name DIYA FLOWERS Date of Study 03/16/2020 Age 24 Visit Number [id number] Gender Male Accession Number [id number] Date of 1995 Referring Dharmesh Sotelo Room Number ED21 Physician Division Plant Engineer Malou Mo, Interpreting Barby Ferrer, T Physician Procedure Type of Study: Veins: Lower Extremities DVT Study, VENOUS DOPPLER LEG, LEFT. Indications for Study:Left Leg Swelling. Patient Status:STAT. Study Location:Portable. Technical Quality:Adequate visualization. Impressions Left Impression 1. There is no deep venous obstruction i n the common femoral, profunda femoral, femoral, popliteal or posterior tibial veins. 2. The peroneal veins could not be visua lized. 3. There is no superficial venous obstru ction in the great saphenous vein. Conclusions Summary Venous duplex imaging and compression of the left lower extremity were performed. The veins were adequately visualized. The left venous system was patent and compressible with no evidence of thrombus where visualzied. The venous Doppler waveforms were phasic with respiration. Signature Velocities are measured in cm/s ; Diameters are measured in cm Performing Organization Address City/State/Zipcode Ph one Number [facility] * XR chest 1 view portable / bedside (03/16/2020 2:29 PM CDT) Specimen Narrative Performed At FINAL REPORT [facility] INDICATION: sob COMPARISON: None TECHNIQUE: Single frontal view of the c hest. FINDINGS: Lungs and pleura: Clear lungs. No effus ion. Heart and mediastinum: Normal heart siz e. Unremarkable mediastinal contours. Osseous structures: No acute abnormalit y. Other: None. IMPRESSION: No acute intrathoracic abnormality. Signed: Michael Lee MD Report Verified Date/Time: 0 14:52:01 [place] Location: [address] Neuro Re ading Room Procedure Note Interface, External Ris In - 03/16/2020 2:54 PM CDT FINAL REPORT INDICATION: sob COMPARISON: None TECHNIQUE: Single frontal view of the chest. FINDINGS: Lungs and pleura: Clear lungs. No effusion. Heart and mediastinum: Normal heart size. Unremarkable mediastinal contours. Osseous structures: No acute abnormality. Other: None. IMPRESSION: No acute intrathoracic abnormality. Signed: Michael Lee MD Report Verified Date/Time: 03/16/2020 14:52:01 [place] Location: [address] Neuro Reading Room Performing Organization Address City/State/Zipcode Ph one Number [facility] after 04/07/2019 Advance Directives For more information, please contact: [facility] [address] [place] [address] Date Inactivated Comments Code Status Date Activated 03/20/2020 12:49 AM Full Code 03/17/2020 6:00 AM This code status was determined by: Patient
--- OUTSIDE RECORDS SUMMARY | 2020-04-07 08:18 | XMS REPORT | Clinical Summary ---
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
--- OUTSIDE RECORDS SUMMARY | 2020-04-07 08:19 | XMS REPORT | Continuity of Care Document ---
Author Author [facility] Organization [facility] Address [address] [place] [address] Phone Unavailable Care Team Providers Care Wrecking Supervisor Name Role Phone Asked, Pcp No PCP Unavailable SOCORRO BARROSO Attphys Unavailable Socorro Barroso MD Attphys Juaquin De La Cruz MD Attphys [phone] Roberto Diaz MD Attphys Jeet Schaeffer MD Attphys Jeet SCHAEFFER Admphys Unavailable Payers Payer Name Policy Type Policy Number Effective Date Expiration Date S ource Problems Condition Name Condition Details Condition Category Status Onset Date Resolution Date Last Treatment Date Treating Clinician Comments Source Cellulitis of left lower extremity Cellulitis of left lower extr emity Disease Active 2020-03-19 00:00:00 [facility] Acute midline back pain, unspecified back location Acu te midline back pain, unspecified back location Disease Active 2020-03-17 00:00:00 [facility] Acute bacterial endocarditis Acute bacterial endocarditis Disease Active 2020-03-17 00:00:00 [facility] IV drug abuse IV drug abuse Disease Active 2020-03-17 00:00:00 [facility] Allergies, Adverse Reactions, Alerts Allergy Name Allergy Type Status Severity Reaction(s) Onset Date Inacti ve Date Treating Clinician Comments Source Penicillins Propensity to adverse reactions Active 2019 00:00:00 [facility] vancomycin DA Active AR 2020-02-12 00:00:00 [facility] Penicillins DA Active U 2020-02-10 00:00:00 [facility] Penicillins DA Active U 2018-07-29 00:00:00 [facility] Penicillins DA Active U 2018-07-19 00:00:00 [facility] Penicillin Propensity to adverse reactions to drug Active 2017-09-28 00:00:00 Juancho reddy Social History Social Habit Start Date Stop Date Quantity Comments Source History SDOH Alcohol Std Drinks [facility] History SDOH Alcohol Binge [facility] Sex Assigned At [facility] History SDOH Alcohol Frequency 2020-03-19 00:00:00 2020-03-19 00:00:0 0 1 [facility] Alcohol intake 2017-09-28 00:00:00 2017-09-28 00:00:00 Current non-drinker of alcohol (finding) Juancho Marquez Smoking Status Start Date Stop Date Source Current every day smoker 2020-03-19 00:00:00 [facility] Medications This patient has no known medications. Vital Signs Vital Name Observation Time Observation Value Comments Source Systolic blood pressure 2020-03-19 14:44:00 147 mm[Hg] [facility] Diastolic blood pressure 2020-03-19 14:44:00 69 mm[Hg] [facility] Heart rate 2020-03-19 14:44:00 82 /min [facility] Body temperature 2020-03-19 14:44:00 36.67 Key [facility] Respiratory rate 2020-03-19 14:44:00 18 /min [facility] Oxygen saturation in Arterial blood by Pulse oximetry 03-19 14:44:00 100 [facility] height 2020-03-16 12:42:00 198.1 cm [facility] Body weight Measured 2020-03-16 12:42:00 92.987 kg [facility] BMI 2020-03-16 12:42:00 23.69 kg/m2 [facility] Procedures Procedure Date / Time Performed Performing Clinician [facility] e REPORT OF PROCEDURE - ENDOSCOPY SCAN 2020-03-21 10:00:38 Pro vider, Default Scanning [facility] ECG 12-LEAD 2020-03-19 16:28:06 Unknown, Hl7 Doctor [facility] LIMITED 2D ECHOCARDIOGRAM 2020-03-19 11:52:35 Sejal Bradfordak Macho [facility] VANCOMYCIN LEVEL, TROUGH 2020-03-18 16:50:[facility] 2020-03-17 23:18:00 [facility] CT THORACIC SPINE WITH IV CONTRAST 2020-03-17 23:18:00 Sejal Bradford [facility] SARS-COV2/RT-PCR ([facility]) 2020-03-17 21:58:00 Sejal Bradford [facility] FERRITIN 2020-03-17 17:42:00 [facility] D-DIMER 2020-03-17 17:42:00 [facility] HIV-1 ANTIGEN WITH HIV-1/2 ANTIBODY 2020-03-17 17:42:00 Hi Bradford [facility] HEPATITIS PANEL, ACUTE 2020-03-17 17:42:00 Tamir [facility] CONT WAVE PULSED DOPPLER 2020-03-17 16:56:49 [facility] BASIC METABOLIC PANEL (7) 2020-03-17 11:28:[address] [facility] LACTATE DEHYDROGENASE (LDH) 2020-03-17 11:28:00 [facility] CT LUMBAR SPINE WITH IV CONTRAST 2020-03-17 03:25:00 Rain De La Cruz [facility] ECG 12-LEAD 2020-03-16 22:28:17 [facility] 2020-03-16 21:54:00 [facility] SARS-COV2/RT-PCR ([facility]) 2020-03-16 21:54:00 [facility] TROPONIN I 2020-03-16 21:53:00 [facility] COMPREHENSIVE METABOLIC PANEL 2020-03-16 21:53:00 [facility] C-REACTIVE PROTEIN 2020-03-16 21:53:00 [facility] CBC W/PLT COUNT & AUTO DIFFERENTIAL 2020-03-16 21:53:00 [facility] VENOUS DOPPLER LEG, LEFT 2020-03-16 18:00:00 [facility] XR CHEST 1 VIEW PORTABLE/BEDSIDE 2020-03-16 14:29:00 PotrinoKerrie [facility] Encounters Start Date/Time End Date/Time [facility] Type [facility] ID Source 2019-08-01 17:23:00 2019-08-01 17:23:00 Emergency E [facility] [id number] [facility] Results Test Description Test Time Test Comments Results Result Comments Source CBC W/AUTO DIFF 2020-04-07 05:00:00 Test Item WHITE BLOOD CELL (test code = WBC) 6.9 K/mm3 4.5-12.5 N RED BLOOD CELL (test code = RBC) 5.17 mill/mm3 4.0-5.8 N HEMOGLOBIN (test code = HGB) 12.7 gram/dL 13.0-17.5 L HEMATOCRIT (test code = HCT) 42.2 % 42.0-52.0 N MEAN CELL VOLUME (test code = MCV) 81.6 fL 80-98 N MEAN CELL HGB (test code = MCH) 24.6 picogram 27.0-33.0 L MEAN CELL HGB CONCETRATION (test code = MCHC) 30.1 gram/dL 33.0-36. 0 L RED CELL DISTRIBUTION WIDTH (test code = RDW) 17.6 % 11.6-16. 2 H RED CELL DISTRIBUTION WIDTH SD (test code = RDW-SD) 51.8 fL 37 .0-51.0 H PLATELET COUNT (test code = PLT) 320 K/mm3 150-450 N MEAN PLATELET VOLUME (test code = MPV) 10.4 fL 6.7-11.0 N NEUTROPHIL % (test code = NT%) 54.9 % 39.0-69.0 N IMMATURE GRANULOCYTE % (test code = IG%) 0.3 % 0.0-5.0 N LYMPHOCYTE % (test code = LY%) 35.6 % 25.0-55.0 N MONOCYTE % (test code = MO%) 6.8 % 0.0-10.0 N EOSINOPHIL % (test code = EO%) 2.0 % 0.0-5.0 N BASOPHIL % (test code = BA%) 0.4 % 0.0-1.0 N NUCLEATED RBC % (test code = NRBC%) 0.0 % 0-0 N NEUTROPHIL # (test code = NT#) 3.80 K/mm3 1.8-7.7 N IMMATURE GRANULOCYTE # (test code = IG#) 0.02 x10 3/uL 0-0.03 N LYMPHOCYTE # (test code = LY#) 2.47 K/mm3 1.0-5.0 N MONOCYTE # (test code = MO#) 0.47 K/mm3 0-0.8 N EOSINOPHIL # (test code = EO#) 0.14 K/mm3 0.0-0.5 N BASOPHIL # (test code = BA#) 0.03 K/mm3 0.0-0.2 N NUCLEATED RBC # (test code = NRBC#) 0.00 K/mm3 0.0-0.1 N MANUAL DIFF REQUIRED (test code = MDIFF) NO - CT L-SPINE W/[id number] 04:55:00 Name: PIERRE FLOWERS [facility] : 1995 Age/S: 24 / M [address] Unit #: [id number] Loc: TimothyANDREWS [address] Phys: Lm Manuel MD Acct: [id number] Dis Date: Status: REG ER PHONE #: [phone] Exam Date: 04/07/2020410 FAX #: [phone] Reason: back pain, hx spinal abscess EXAMS: CPT CODE: [id number] CT L-SPINE W/CONTRAST [id number] Exam: CT L-spine with contrast. Location: H 12 History: back pain, hx spinal abscess Technique: Enhanced spiral slices were taken through the lumbar spine. Sagittal and coronal reformations were performed. One or more of the following dose reduction techniques were used: Automated exposure control, adjustment of the mA and/or kV according to patient size, and/or utilization of iterative reconstruction technique. Findings: No fracture or dislocation is seen. The bony cortices are intact. The disc spaces are well preserved. The vertebral bodies demonstrate normal heights. The spine is in good alignment. The surrounding soft tissues are normal. No abnormal enhancement is seen T12-L1: No canal stenosis or foraminal narrowing. L1-L2: No canal stenosis or f oraminal narrowing. L2-L3: No canal stenosis or foraminal narrowin g. L3-L4: No canal stenosis or foraminal narrowing. L4-L5: A 6 mm disc bulge and ligamentum flavum redundancy are present resu lting in mild canal stenosis. The neural foramina are patent. L5- S1: No canal stenosis or foraminal narrowing. IMPRESSION: 1. Mild spinal stenosis L4-5. 2. Otherwise unremarkable exam. at 0455 Reported and signed by: Keenan Nunez M.D. PAGE 1 Signed Report (CONTINUED) Name: PIERRE FLOWERS [facility] : 1995 Age/S: 24 / M [address] [facility] Unit #: [id number] Loc: ANDREWS [place] [address] Phys: Lm Manuel MD Acct: [id number] Dis Date: Status: REG E R PHONE #: [phone] Exam Date: 04/07/20410 FAX #: [phone] Reason: back pain, hx spin al abscess EXAMS: CPT CODE: [id number] CT L-SPINE W/CONTRAST 06764 <Continued> CC: Lm Manuel MD Technologist:MOE MEDINA RT(R)(CT) CTDI: DLP: Trnscb Date/Time: 04/07/2020 (0459) tCHRISTINAFC Orig Print D/T: S: 04/07/2020 (7959) PAGE 2 Signed Report BASIC METABOLIC [id number] 04:24:00* Test Item Value Reference Range Interpretation Comments SODIUM (test code = NA) 139 mmol/L 136-145 N POTASSIUM (test code = K) 3.9 mmol/L 3.5-5.1 N CHLORIDE (test code = CL) 103.0 mmol/L 98-107 N CARBON DIOXIDE (test code = CO2) 30.0 mmol/L 21-32 N ANION GAP (test code = GAP) 9.9 10-20 L GLUCOSE (test code = GLU) 95 mg/dL 74-106 N BLOOD UREA NITROGEN (test code = BUN) 11 mg/dL 7-18 N GLOMERULAR FILTRATION RATE (test code = GFR) > 60 mL/min >=60 Estimated GFR by using Modified MDRD formula.Chronic kidney disease is defined as either kidney damageor GFR <60 mL/min/1.73 m2 for >3 months. CREATININE (test code = CREAT) 0.50 mg/dL 0.7-1.3 L BUN/CREATININE RATIO (test code = BUN/CREA) 20.8 10-20 H CALCIUM (test code = CA) 9.8 mg/dL 8.5-10.1 N BASIC METABOLIC [id number] 04:23:00* Test Item Value Reference Range Interpretation Comments SODIUM (test code = NA) 139 mmol/L 136-145 N POTASSIUM (test code = K) 3.9 mmol/L 3.5-5.1 N CHLORIDE (test code = CL) 103.0 mmol/L 98-107 N CARBON DIOXIDE (test code = CO2) mmol/L 21-32 ANION GAP (test code = GAP) 10-20 GLUCOSE (test code = GLU) mg/dL 74-106 BLOOD UREA NITROGEN (test code = BUN) mg/dL 7-18 GLOMERULAR FILTRATION RATE (test code = GFR) mL/min >=60 CREATININE (test code = CREAT) mg/dL 0.7-1.3 BUN/CREATININE RATIO (test code = BUN/CREA) 10-20 CALCIUM (test code = CA) 9.8 mg/dL 8.5-10.1 N BASIC METABOLIC [id number] 04:21:00* Test Item Value Reference Range Interpretation Comments SODIUM (test code = NA) 139 mmol/L 136-145 N POTASSIUM (test code = K) 3.9 mmol/L 3.5-5.1 N CHLORIDE (test code = CL) 103.0 mmol/L 98-107 N CARBON DIOXIDE (test code = CO2) mmol/L 21-32 ANION GAP (test code = GAP) 10-20 GLUCOSE (test code = GLU) mg/dL 74-106 BLOOD UREA NITROGEN (test code = BUN) mg/dL 7-18 GLOMERULAR FILTRATION RATE (test code = GFR) mL/min >=60 CREATININE (test code = CREAT) mg/dL 0.7-1.3 BUN/CREATININE RATIO (test code = BUN/CREA) 10-20 CALCIUM (test code = CA) mg/dL 8.5-10.1 URINALYSIS [id number] 20:39:00* Test Item Value Reference Range Interpretation Comments UA COLOR (test code = COLU) DARK YELLOW YELLOW A UA APPEARANCE (test code = APPU) CLEAR CLEAR UA GLUCOSE DIPSTICK (test code = DGLUU) norm mg/dL NEGATIVE UA BILIRUBIN DIPSTICK (test code = BILU) NEGATIVE mg/dL NEGATIVE UA KETONE DIPSTICK (test code = KETU) neg mg/dL NEGATIVE UA SPECIFIC GRAVITY (test code = SGU) 1.025 1.001-1.035 UA BLOOD DIPSTICK (test code = RICHY) 10 (Trace) Cody/uL NEGATIVE A UA PH DIPSTICK (test code = STACY) 5.0 5.0-8.0 UA PROTEIN DIPSTICK (test code = PROU) neg mg/dL Neg-15 UA UROBILINIOGEN DIPSTICK (test code = URO) 1 mg/dL 0.0-0.2 A UA NITRITE DIPSTICK (test code = KARLA) NEGATIVE NEGATIVE UA LEUKOCYTE ESTERASE DIPSTICK (test code = LEUU) 25 Tammy/uL (Tra ce) uL NEGATIVE A UA WBC (test code = WBCU) 3-5 per HPF 0-5 UA RBC (test code = RBCU) 1-3 per HPF 0-5 UA EPITHELIAL CELLS (test code = EPIU) Few (2-5/hpf) per HPF Few UA BACTERIA (test code = BACU) FEW per HPF NONE UA CALCIUM OXALATE CRYSTALS (test code = CAOXU) FEW per LPF NONE A Urine Source? VoidedDRUGS OF ABUSE SCREEN [id number] 20:39:00* Test Item Value Reference Range Interpretation Comments URN COCAINE (test code = COCAURN) NEGATIVE NEGATIVE URN CANNABINOIDS (test code = CANNABURN) NEGATIVE NEGATIVE URN AMPHETAMINE (test code = AMPHETURN) POSITIVE NEGATIVE A URN BARBITURATE (test code = BARBITURN) NEGATIVE NEGATIVE URN BENZODIAZEPINE (test code = BENZOURN) NEGATIVE NEGATIVE URN OPIATES (test code = OPIATURN) POSITIVE NEGATIVE A URN PHENCYCLIDINE (PCP) (test code = PHENCURN) NEGATIVE NEGATIV E Urine Source? VoidedURINALYSIS [id number] 20:36:00* Test Item Value Reference Range Interpretation Comments UA COLOR (test code = COLU) DARK YELLOW YELLOW A UA APPEARANCE (test code = APPU) CLEAR CLEAR UA GLUCOSE DIPSTICK (test code = DGLUU) norm mg/dL NEGATIVE UA BILIRUBIN DIPSTICK (test code = BILU) NEGATIVE mg/dL NEGATIVE UA KETONE DIPSTICK (test code = KETU) neg mg/dL NEGATIVE UA SPECIFIC GRAVITY (test code = SGU) 1.025 1.001-1.035 UA BLOOD DIPSTICK (test code = RICHY) 10 (Trace) Cody/uL NEGATIVE A UA PH DIPSTICK (test code = STACY) 5.0 5.0-8.0 UA PROTEIN DIPSTICK (test code = PROU) neg mg/dL Neg-15 UA UROBILINIOGEN DIPSTICK (test code = URO) 1 mg/dL 0.0-0.2 A UA NITRITE DIPSTICK (test code = KARLA) NEGATIVE NEGATIVE UA LEUKOCYTE ESTERASE DIPSTICK (test code = LEUU) 25 Tammy/uL (Tra ce) uL NEGATIVE A UA WBC (test code = WBCU) 3-5 per HPF 0-5 UA RBC (test code = RBCU) 1-3 per HPF 0-5 UA EPITHELIAL CELLS (test code = EPIU) Few (2-5/hpf) per HPF Few UA BACTERIA (test code = BACU) FEW per HPF NONE UA CALCIUM OXALATE CRYSTALS (test code = CAOXU) FEW per LPF NONE A Urine Source? VoidedDRUGS OF ABUSE SCREEN [id number] 20:36:00* Test Item Value Reference Range Interpretation Comments URN COCAINE (test code = COCAURN) NEGATIVE URN CANNABINOIDS (test code = CANNABURN) NEGATIVE URN AMPHETAMINE (test code = AMPHETURN) NEGATIVE URN BARBITURATE (test code = BARBITURN) NEGATIVE URN BENZODIAZEPINE (test code = BENZOURN) NEGATIVE URN OPIATES (test code = OPIATURN) NEGATIVE URN PHENCYCLIDINE (PCP) (test code = PHENCURN) NEGATIV E Urine Source? Voided- XR CHEST 1 [id number] 20:31:00 [facility] 1995 Age[facility]S:24 /M [address] [facility] Unit#:[id number] Loc: [place] [address] Phys: Jn Kraft DATA ANALYST ETL DEVELOPER Dis Date: PHONE #: [phone] Status: REG ER FAX #: [phone] Exam Date: 04/06/2020 Reason: CHEST PAIN EXAMS: CPT CODE: [id number] XR CHEST 1 V 01113 EXAM: Chest x-ray, one view; INFORMATION: Chest pain; IMPRESSION: 1. Significant improvement compared with a study from February 10, 2020, previously seen multiple small cavitary nodular lesions have resolved. On today's study they are is no evidence of pulmonary infiltrates or mass lesions. 2. Unremarkable cardiac mediastinal silhouette. Location code: GW at 2030 Reported and signed by: Kelechi Bowman M.D. CC: Oscar Morse MD; Jn Kraft NP Technologist: RENU SOLORIO RT(R),RDMS,CT Trnscrpt Data: 04/06/2020 (2030) Anat Orig Print D/T: S: 04/06/2020 (2033) PAGE 1 Signed Report BASIC METABOLIC [id number] 20:12:00* Test Item Value Reference Range Interpretation Comments SODIUM (test code = NA) 138 mmol/L 136-145 N POTASSIUM (test code = K) 4.0 mmol/L 3.5-5.1 N CHLORIDE (test code = CL) 103 mmol/L 101-109 N CARBON DIOXIDE (test code = CO2) 27.5 mmol/L 21-32 N ANION GAP (test code = GAP) 12 mmol/L 10-20 N GLUCOSE (test code = GLU) 117 mg/dL 74-106 H BLOOD UREA NITROGEN (test code = BUN) 10 mg/dL 3-21 N GLOMERULAR FILTRATION RATE (test code = GFR) > 60 mL/min >=60 Estimated GFR by using Modified MDRD formula.Chronic kidney disease is defined as either kidney damageor GFR <60 mL/min/1.73 m2 for >3 months. CREATININE (test code = CREAT) 0.68 mg/dL 0.55-1.3 N BUN/CREATININE RATIO (test code = BUN/CREA) 14.7 10-20 N CALCIUM (test code = CA) 8.6 mg/dL 8.4-10.2 N [id number] 20:12:00* Test Item Value Reference Range Interpretation Comments TROPONIN-I (test code = TROPI) <0.015 ng/mL 0.00-0.056 N B-TYPE NATRIURETIC [id number] 20:10:00* Test Item Value Reference Range Interpretation Comments B-TYPE NATRIURETIC PEPTIDE (test code = BNP) 49.1 pg/mL 0-100 N BASIC METABOLIC [id number] 20:02:00* Test Item Value Reference Range Interpretation Comments SODIUM (test code = NA) 138 mmol/L 136-145 N POTASSIUM (test code = K) 4.0 mmol/L 3.5-5.1 N CHLORIDE (test code = CL) 103 mmol/L 101-109 N CARBON DIOXIDE (test code = CO2) 27.5 mmol/L 21-32 N ANION GAP (test code = GAP) 12 mmol/L 10-20 N GLUCOSE (test code = GLU) 117 mg/dL 74-106 H BLOOD UREA NITROGEN (test code = BUN) 10 mg/dL 3-21 N GLOMERULAR FILTRATION RATE (test code = GFR) > 60 mL/min >=60 Estimated GFR by using Modified MDRD formula.Chronic kidney disease is defined as either kidney damageor GFR <60 mL/min/1.73 m2 for >3 months. CREATININE (test code = CREAT) 0.68 mg/dL 0.55-1.3 N BUN/CREATININE RATIO (test code = BUN/CREA) 14.7 10-20 N CALCIUM (test code = CA) 8.6 mg/dL 8.4-10.2 N [id number] 20:02:00* Test Item Value Reference Range Interpretation Comments TROPONIN-I (test code = TROPI) ng/mL 0-0.045 CBC W/O [id number] 19:54:00* Test Item Value Reference Range Interpretation Comments WHITE BLOOD CELL (test code = WBC) 7.5 K/mm3 4.5-12.5 N RED BLOOD CELL (test code = RBC) 5.15 mill/mm3 4.0-5.8 N HEMOGLOBIN (test code = HGB) 12.5 gram/dL 13.0-17.5 L HEMATOCRIT (test code = HCT) 41.2 % 42.0-52.0 L MEAN CELL VOLUME (test code = MCV) 80.0 fL 80-98 N MEAN CELL HGB (test code = MCH) 24.3 picogram 27.0-33.0 L MEAN CELL HGB CONCETRATION (test code = MCHC) 30.3 gram/dL 33.0-36. 0 L RED CELL DISTRIBUTION WIDTH (test code = RDW) 16.9 % 11.6-16. 2 H RED CELL DISTRIBUTION WIDTH SD (test code = RDW-SD) 50.2 fL 37 .0-51.0 N PLATELET COUNT (test code = PLT) 281 K/mm3 150-450 N MEAN PLATELET VOLUME (test code = MPV) 9.8 fL 6.7-11.0 N Blood Culture - Routine (Left Venipuncture)2020-03-22 00:01:00* Test Item Value Reference Range Interpretation Comments Result (test code = 6463-4) No growth in 5 days [facility] [id number] 00:01:00* Test Item Value Reference Range Interpretation Comments CULTURE (BEAKER) (test code = 1095) No growth in 5 days BLOOD [id number] 00:01:00* Test Item Value Reference Range Interpretation Comments CULTURE (BEAKER) (test code = 1095) No growth in 5 days ECG 12 [id number] 06:32:07Interface, External Ris In - 03/20/2020 6:32 AM CDTVentricular Rate 74 BPMAtrial Rate 74 BPMP-R Interval 152 msQRS Duration 88 msQ-T Interval 386 msQTC Calculation(Bazett) 428 msP Edwards 47 degreesR Edwards 9 degreesT Edwards 65 degreesNormal sinus rhythmNormal ECGNo previous ECGs availableConfirmed by MD MATTHEW, DONTA Cui ([id number]) on 03/20/2020 6:32:06 [facility] [id number] 14:11:06Ejection FractionSLEH ECHO HEARTLAB MKCKESSON CPACSInterface, External Ris In - 03/19/2020 2:11 PM CDTTransthoracic Echocardiography Report (TTE) Demographics Patient Name PIERRE FLOWERS Date of Study 03/19/2020 Gender Male Visit Number [id number] Race Unknown Room Number 2109 Number Date of 1995 Referring Physician HITESH BRADFORD Age 24 year(s) Variety Lathe Operator Dottie Mo [facility] Language Interpreter Medina Prince, Interpreting Donta Adame MD RDCS Physician Procedure Type of Study TTE procedure:LIMITED 2D ECHO CARDIOGRAM (Routine) Indications:Suspected infective endocarditis with positive cultures or newmurmur.Clinical HistoryHGB 11.0HCT 35.3 %HCV, IV DRUG USER (METH, HEROIN), SMOKERHeight: 78 inches Weight: 92.99 kg (205 lbs) BSA: 2.28 m^2 BMI: 23.69 kg/m^2HR: 70 bpm BP: 110/776 mmHg Summary The left ventricle is chamber si ze (by vol index) is normal (male - LVED vol - 34-74ml/m2). All of the LV segmen ts contract normally . LVEF by Matias's method of disk assessment is normal (> 60%) . A linear echodense mass is visualized on the tricuspid valve. The mass me asures 8.65 mm x 3.47 mm. Severe tricuspid regurgitation. RV chamber size is mil dly enlarged . Global RV systolic function is mildly reduced . Previous Study N o prior studies available for comparison. Signature Findings Technical Quality: Technically adequate exam. Left The left ventricle is chamber size (by vol index) is normal Ventricle (male - LVED vol - 34-74ml/m2). LV septal thickness is norm al (0.6-1.1cm). LV posterior wall thickness is mildly increased (1.2-1.4cm) . All of the LV segments contract normally . Global LV systolic function normal . LVEF by Matias's method of di sk assessment is normal (>60%) . Left Atrium [...] Diameter: 1.91 cm LVOT Area: 2.87 cm^2 [facility], [id number] 17:21:00* Test Item Value Reference Range Interpretation Comments Vancomycin Tr (test code = 4092-3) 13.1 ug/mL 10-20 GUY (test code = GUY) Internet Sales Associate ID - ASHLEE M Lab Interpretation (test code = 83261-3) Normal [facility] Center[facility] LEVEL, [id number] 17:21:00* Test Item Value Reference Range Interpretation Comments VANCOMYCIN TROUGH (BEAKER) (test code = 522) 13.1 ug/mL 10.0-20.0 Internet Sales Associate ID - ASHLEE MSARS-CoV2/RT-PCR (Symptomatic ONLY)2020-03-18 12:31:00* Test Item Value Reference Range Interpretation Comments SARS-COV2/RT-PCR (test code = 95453-5) Negative Not Detected, N egative SARS-COV-2 PERFORMING LAB (test code = 09811-2) [facility] GUY (test code = GUY) Negative result for this luna t determines that SARS-CoV-2 RNA was not present in the specimen above the Limit of Detection (LOD). However, Negative results do not preclude SARS-CoV-2 infection and should not be used as the sole basis for treatment or patient management decisions. Negative results must be combined with clinical observations, patient history, and epidemiological information. A false negative result may occur if a specimen is improperly collected, transported or handled. A false negative result should be considered if patient's recent exposures or clinical presentation indicate that COVID-19 (SARS-CoV-2) is likely and diagnostic tests for other causes of illness are negative. Re-testing should be considered in cases of suspected false negatives. The limit of detection for this assay is 800 copies/mL. This SARS CoV-2 test is a real-time RT-PCR test intended for the qualitative detection of nucleic acid from SARS-CoV-2 in a nasopharyngeal swab specimen collected from individuals suspected of COVID-19 by their healthcare provider. This test has not been Food and Drug Administration (FDA) cleared or approved. This is a modified version of an approved Emergency Use Authorization (EUA) and is in the process of review by the FDA. Once authorized by the FDA, the issued EUA will be effective until the declaration that circumstances exist justifying the authorization of the emergency use of in vitro diagnostic tests for detection and/or diagnosis of COVID-19 is terminated under Section 564(b)(2) of the Act or the EUA is revoked under Section 564(g) of the Act. Fact Sheet for Healthcare Providers:https://www.TalkBin/sites/default/files/product/documents/Fact_Shee c_RW_Jjtvprfte_Oonp_BPKL-YgH-8.pdf Fact Sheet for Healthcare Patients:https://www.TalkBin/sites/default/files/pro duct/documents/Hnoj_Thuuk_Xiqkueit_Qnrd_QANA-EdG-4.pdf Performing Laboratory:[facility]ARS-COV2/RT-PCR ([facility])2020-03-18 12:31:00* Test Item Value Reference Range Interpretation Comments SARS-COV2/RT-PCR (test code = 7346045) Negative Not Detected, N egative SARS-COV-2 PERFORMING LAB (test code = 0665675) [facility] Negative result for this test determines that SARS-CoV-2 RNA was not present in the specimen above the Limit of Detection (LOD). However, Negative results do n ot preclude SARS-CoV-2 infection and should not be used as the sole basis for tr eatment or patient management decisions. Negative results must be combined with clinical observations, patient history, and epidemiological information. A false negative result may occur if a specimen is improperly collected, transported or handled. A false negative result should be considered if patient's recent expo sures or clinical presentation indicate that COVID-19 (SARS-CoV-2) is likely and diagnostic tests for other causes of illness are negative. Re-testing should b e considered in cases of suspected false negatives.The limit of detection for th is assay is 800 copies/mL.This SARS CoV-2 test is a real-time RT-PCR test intend ed for the qualitative detection of nucleic acid from SARS-CoV-2 in a nasopharyn geal swab specimen collected from individuals suspected of COVID-19 by their [facility] provider.This test has not been Food and Drug Administration (FDA) clear ed or approved. This is a modified version of an approved Emergency Use Authori zation (EUA) and is in the process of review by the FDA. Once authorized by [facility] FDA, the issued EUA will be effective until the declaration that circumstances exist justifying the authorization of the emergency use of in vitro diagnostic tests for detection and/or diagnosis of COVID-19 is terminated under Section 564 (b)(2) of the Act or the EUA is revoked under Section 564(g) of the Act.Fact She et for Healthcare Providers:https://www.TalkBin/sites/default/files/product/d ocuments/Iyeg_Euujk_SB_Zmrcdhbmp_Fszy_HKVA-FsL-0.pdfFact Sheet for Healthcare Pa floresita:https://www.TalkBin/sites/default/files/product/documents/Fact_Sheet_P nhqsuok_Obqi_GRQI-RuA-5.pdfPerforming Laboratory:[address], [place] [address]VC, SPINE, THORACIC, [id number] 23:40:00FINAL REPORT EXAM: CT thoracic spine without contrast [...] imaged simple cyst in the right kidney. IMPRESSION:Multiple pulmonary nodules, which given history are compatible with septic emboli. No gross abnormality in the thoracic spine. Signed: Leo Gonzalez Verified Date/Time: 03/17/2020 23:40:45 spine thoracic with IV [id number] 23:40:00Interface, External Ris In - 03/17/2020 11:43 PM CDTFINAL REPORT EXAM: CT thoracic spine without contrast [...] no significant spinal canal or neural foraminal s tenosis. There is no prevertebral soft tissue swelling. The paraspinal soft tiss ues are unremarkable. There are multiple bilateral pulmonary nodules as well as small patchy opacities in the right lower lobe. The pulmonary nodules have a per ipheral and basilar predominance. Some nodules are cavitary. 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 There is a partially imaged simple cyst in the right kidney. IMPRESSION:Multiple pulmonary nodules, which given history are compatibl e with septic emboli. No gross abnormality in the thoracic spine. Signed: Leo Gonzalezort Verified Date/Time: 03/17/2020 23:40:45 Electronically sig twila by: LEO GONZALEZ MD on 03/17/2020 11:40 PM [facility] [id number] 23:33:00FINAL REPORT EXAM: CT of the chest, without [...] COMPARISON: None FINDINGS: LOWER NECK: Within normal limits.AIRWAYS AND LUNGS: Patent central tracheobronchial tree. Multilobar peripheral and basilar nodular opacities, some of which are cavitary. Small patchy opacities in the right lung base are noted. Findings are compatible with septic emboli. Calcified right lower lobe granuloma.PLEURA: No pleural effusion or pneumothorax.VESSELS: Within normal limits.HEART: Normal heart size. No pericardial effusion.DALJIT AND MEDIASTINUM: Within normal limit s.VISUALIZED UPPER ABDOMEN: Partially imaged simple right upper pole renal cyst. SOFT TISSUES: Within normal limits.BONES: Within normal limits. IMPRESSION: Find ings compatible with septic emboli. Signed: Leo Gonzalezort Verified Date /Time: 03/17/2020 23:33:12 chest without IV [id number] 23:33:00 Interface, External Ris In - 03/17/2020 11:35 PM CDTFINAL REPORT PATIENT ID: [id number] EXAM: CT of the chest, without contrast CLINICAL HISTORY: evaluate for pneumonia and cavitary lesions Technique: CT of the chest was performed without intravenous contrast administration. This exam was performed according to our d epartmental dose optimization program which includes automated exposure control, adjustment of the mA and/or kV according to patient's size and/or use of iterat maria esther reconstructive technique. COMPARISON: None FINDINGS: LOWER NECK: Within nor mal limits.AIRWAYS AND LUNGS: Patent central tracheobronchial tree. Multilobar p eripheral and basilar nodular opacities, some of which are cavitary. Small patch y opacities in the right lung base are noted. Findings are compatible with septi c emboli. Calcified right lower lobe granuloma.PLEURA: No pleural effusion or pn eumothorax.VESSELS: Within normal limits.HEART: Normal heart size. No pericardia l effusion.DALJIT AND MEDIASTINUM: Within normal limits.VISUALIZED UPPER ABDOMEN: Partially imaged simple right upper pole renal cyst.SOFT TISSUES: Within normal limits.BONES: Within normal limits. IMPRESSION: Findings compatible with septic emboli. Signed: Leo Gonzalezort Verified Date/Time: 03/17/2020 23:33:12 [facility], [id number] 21:10:00* Test Item Value Reference Range Interpretation Comments Hep A IgM (test code = 49867-3) Nonreactive Nonreactive Hep B C IgM (test code = 20167-5) Nonreactive Nonreactive Hepatitis C Ab (test code = 21974-3) Reactive Nonreactive A HBsAg Screen (test code = 5195-3) Nonreactive Nonreactive GUY (test code = GUY) Internet Sales Associate ID - DB Lab Interpretation (test code = 87827-9) Abnormal [facility], [id number] 21:10:00* Test Item Value Reference Range Interpretation Comments HEPATITIS A IGM ANTIBODY (BEAKER) (test code = 498) Nonreactive No nreactive HEPATITIS B CORE IGM ANTIBODY (BEAKER) (test code = 645) Non reactive Nonreactive HEPATITIS C ANTIBODY (BEAKER) (test code = 367) Reactive Nonrea ctive A HEPATITIS B SURFACE ANTIGEN (2) (BEAKER) (test code = 2585) Nonreactive Nonreactive Internet Sales Associate ID - DBHIV-1 Antigen with HIV-1/2 [id number] 19:50:00* Test Item Value Reference Range Interpretation Comments HIV-1 Antigen with HIV 1&2 Antibody (test code = 10119-5) No nreactive Nonreactive GUY (test code = GUY) Internet Sales Associate ID - DB Lab Interpretation (test code = 87132-6) Normal [facility] ANTIGEN WITH HIV-1/2 [id number] 19:50:00* Test Item Value Reference Range Interpretation Comments HIV-1 ANTIGEN WITH HIV 1\\T\\2 ANTIBODY (2) (BEAKER) (te st code = 2586) Nonreactive Nonreactive Internet Sales Associate ID - [id number] 18:40:00* Test Item Value Reference Range Interpretation Comments Ferritin (test code = 2276-4) 187.46 ng/mL 5-275 GUY (test code = GYU) Internet Sales Associate ID - ASHLEE M Lab Interpretation (test code = 41709-7) Normal [facility] CenterFERRITIN2020-07-11 18:40:00* Test Item Value Reference Range Interpretation Comments FERRITIN (JONO) (test code = 361) 187.46 ng/mL 5.00-275.00 Internet Sales Associate LING ROSADO [id number] 18:12:00* Test Item Value Reference Range Interpretation Comments D-Dimer, Quant (test code = 51889-5) 0.54 <0.50 MG/L FEU H GUY (test code = GUY) Intended Use: The D-Dimer As say can be used to aid in the diagnosis of Deep Vein Thrombosis (DVT) and Pulmonary Embolism Disease (PED).In patients with low pre-test probability, various studies concerning STA Liatest D-dimer test have reported that with a cutoff value of 0.50 MG/L FEU, the Negative Predictive Value (NPV) regarding the exclusion of thrombosis is within 95-100% range. Lab Interpretation (test code = 45170-6) Abnormal [facility] CenterD-[id number] 18:12:00* Test Item Value Reference Range Interpretation Comments D-DIMER QUANTITATIVE (BEAKER) (test code = 671) 0.54 MG/L FEU <0.50 H Intended Use: The D-Dimer Assay can be used to aid in the diagnosis of Deep Vein Thrombosis (DVT) and Pulmonary Embolism Disease (PED).In patients with low pre- test probability, various studies concerning STA Liatest D-dimer test have repor ian that with a cutoff value of 0.50 MG/L FEU, the Negative Predictive Value (DATA ANALYST ETL DEVELOPER V) regarding the exclusion of thrombosis is within 95-100% range.Lactate dehydrogenase (LDH)2020-03-17 17:39:00* Test Item Value Reference Range Interpretation Comments LDH (test code = 2532-0) 562 U/L 125-220 H Spe cimen slightly hemolyzed GUY (test code = GUY) Internet Sales Associate ID Yaniv Gutierrez Lab Interpretation (test code = 72720-1) Abnormal [facility] CenterLACTATE DEHYDROGENASE (LDH)2020-03-17 17:39:00* Test Item Value Reference Range Interpretation Comments LACTATE DEHYDROGENASE (BEAKER) (test code = 635) 562 U/L 125-2 20 H Specimen slightly hemolyzed Internet Sales Associate LING ROSADO MBasic metabolic panel (Na, K+, Cl, CO2, Glu, Ca, BUN, Cr) 2020-03-17 12:04:00* Test Item Value Reference Range Interpretation Comments Sodium (test code = 2951-2) 136 meq/L 136-145 Potassium (test code = 2823-3) 4.0 meq/L 3.5-5.1 Specimen slightly hemolyzed Chloride (test code = 2075-0) 105 meq/L 98-107 CO2 (test code = 8-9) 25 meq/L 22-29 BUN (test code = 3094-0) 2 mg/dL 7-21 L Creatinine (test code = 2160-0) 0.55 mg/dL 0.57-1.25 L Specimen slightly hemolyzed Glucose (test code = 2345-7) 97 mg/dL 70-105 Calcium (test code = 16194-1) 9.2 mg/dL 8.4-10.2 EGFR (test code = 93113-9) 180 mL/min/1.73 sq m ESTIMATED GFR IS NOT ACCURATE CREATININE CLEARANCE IN PREDICTING GLOMERULAR FILTRATION RATE. ESTIMATED GFR IS NOT APPLICABLE FOR DIALYSIS PATIENTS. GUY (test code = GUY) Internet Sales Associate ID - PIAYA L Lab Interpretation (test code = 38496-3) Abnormal [facility] [id number] 12:04:00* Test Item Value Reference Range Interpretation Comments SODIUM (BEAKER) (test code = 381) 136 meq/L 136-145 POTASSIUM (BEAKER) (test code = 379) 4.0 meq/L 3.5-5.1 Specimen slightly hemolyzed CHLORIDE (BEAKER) (test code = 382) 105 meq/L 98-107 CO2 (BEAKER) (test code = 355) 25 meq/L 22-29 BLOOD UREA NITROGEN (BEAKER) (test code = 354) 2 mg/dL 7-21 L CREATININE (BEAKER) (test code = 358) 0.55 mg/dL 0.57-1.25 L Specimen slightly hemolyzed GLUCOSE RANDOM (BEAKER) (test code = 652) 97 mg/dL 70-105 CALCIUM (BEAKER) (test code = 697) 9.2 mg/dL 8.4-10.2 EGFR (BEAKER) (test code = 1092) 180 mL/min/1.73 sq m ESTIMATED GFR IS NOT ACCURATE CREATININE CLEARANCE IN PREDICTING GLOMERULAR FILTRATION RATE. ESTIMATED GFR IS NOT APPLICABLE FOR DIALYSIS PATIENTS. Internet Sales Associate ID - PIAYA LVenous doppler leg, [id number] 11:49:52Ejection FractionSLEH ECHO HEARTLAB MKCKESSON CPACS Left Impression1. There is no deep venous obstruction in the common femoral, profundafemoral, femoral, popliteal or posterior tibial veins.2. The peroneal veins could not be visualized.3. There is no superficial venous obstruction in the great saphenous vein. Conclusions Summary Venous duplex imaging and compression of the left lower extremity were performed. The veins were adequately visualized. The left venous system was patent and compressible with no evidence of thrombus where visualzied. The chuck ous Doppler waveforms were phasic with respiration. Signature Velocities are measured in cm/s ; Diameters are measured in cm Interface, External Ris In - 03/17/2020 11:49 AM CD TPV LAB - Lower Extremities DVT Study Demographics Patient Name ALBIN FLOWERS Date of Study 03/16/2020 Age 24 Visit Number [id number] Gender Male Accession Number [id number] Date of 1995 Referring Dharmesh Socorro Room Number ED21 Physician Variety Lathe Operator Malou Mo, Interpreting Barby Ferrer T Physician ProcedureType of Study: Veins: Lower Extremit ies DVT Study, VENOUS DOPPLER LEG, LEFT. Indications for Study:Left Leg Swelling .Patient Status:STAT.Study Location:Portable.Technical Quality:Adequate visualiz ation.ImpressionsLeft Impression1. There is no deep venous obstruction in the co mmon femoral, profundafemoral, femoral, popliteal or posterior tibial veins.2. T he peroneal veins could not be visualized.3. There is no superficial venous obst ruction in the great saphenous vein. Conclusions Summary Venous duplex imaging and compression of the left lower extremity were performed. The veins were adeq uately visualized. The left venous system was patent and compressible with no ev idence of thrombus where visualzied. The venous Doppler waveforms were phasic wi th respiration. Signature --------- Velocities are measured in cm/s ; Diameters are measured in [place]OV[place] ([facility])2020-03-17 09:57:00* Test Item Value Reference Range Interpretation Comments SARS-COV2/RT-PCR (test code = 2520310) Negative Not Detected, N egative SARS-COV-2 PERFORMING LAB (test code = 3070686) [facility] Negative result for this test determines that SARS-CoV-2 RNA was not present in the specimen above the Limit of Detection (LOD). However, Negative results do n ot preclude SARS-CoV-2 infection and should not be used as the sole basis for tr eatment or patient management decisions. Negative results must be combined with clinical observations, patient history, and epidemiological information. A false negative result may occur if a specimen is improperly collected, transported or handled. A false negative result should be considered if patient's recent expo sures or clinical presentation indicate that COVID-19 (SARS-CoV-2) is likely and diagnostic tests for other causes of illness are negative. Re-testing should b e considered in cases of suspected false negatives.The limit of detection for th is assay is 800 copies/mL.This SARS CoV-2 test is a real-time RT-PCR test intend ed for the qualitative detection of nucleic acid from SARS-CoV-2 in a nasopharyn geal swab specimen collected from individuals suspected of COVID-19 by their [facility] provider.This test has not been Food and Drug Administration (FDA) clear ed or approved. This is a modified version of an approved Emergency Use Authori zation (EUA) and is in the process of review by the FDA. Once authorized by [facility] FDA, the issued EUA will be effective until the declaration that circumstances exist justifying the authorization of the emergency use of in vitro diagnostic tests for detection and/or diagnosis of COVID-19 is terminated under Section 564 (b)(2) of the Act or the EUA is revoked under Section 564(g) of the Act.Fact She et for Healthcare Providers:https://www.DeliverCareRx.CompareMyFare/sites/default/files/product/d ocuments/Iidh_Tyjhi_MA_Yidmpyoqo_Eddy_DGNZ-EdM-4.pdfFact Sheet for Healthcare Pa lashawns:https://www.DeliverCareRx.CompareMyFare/sites/default/files/product/documents/Fact_Sheet_P ibyubxi_Muoy_CPUO-GjR-8.pdfPerforming Laboratory:[facility] [place] [facility].[place], [place] [address]DE, SPINE, LUMBAR, [id number] 03:48:00Reason for exam:->Back Pain, Hx of IVDA and EndocarditisWhat is the patient's sedation requirement?->No SedationFINAL REPORT CT, SPINE, LUMBAR, WITH IV CONTRAST CLINICAL HISTORY: Back pain, uncomplicated (Ped 0-18y)Back Pain, Hx of IVDA and Endocarditis COMPARISON: None TECHNIQUE: Multiple axial CT images of the lumbar spine were obtained with contrast. Sagittal and coronal 2D reconstructions were created. This exam was performed according to our departmental dose-optimization program, which includes automated exposure control, adjustment of the mA and/or kV according to patient size and/or use of the iterative reconstruction technique. FINDINGS:No acute osseous fracture or traumatic malalignment. No suspicious osseous lesion.No paraspinal mass. Right kidney 4.2 cm cyst. No pathologic enhancement. Disc levels:L1-2: No significant disc bulge, central spinal canal or neural foraminal stenosis.L2-3: No significant disc bulge, central spinal canal or neural foraminal stenosis.L3-4: Small disc bulge without high-grade osseous central spi nal canal or neural foraminal stenosis.L4-5: Small disc bulge without high-grade osseous central spinal canal or neural foraminal stenosis.L5-S1: Small disc bul ge without high-grade osseous central spinal canal stenosis. Moderate bilateral neural foraminal stenosis present. Lungs demonstrate basilar groundglass opaciti es. Right lung base calcified granuloma. IMPRESSION:Bibasilar pulmonary groundg lass opacities. Commonly reported imaging features of (COVID-19 or viral) pneumo thalia are present. Other processes such as influenza pneumonia and organizing pneu monia, as can be seen with drug toxicity and connective tissue disorder, can cau se a similar imaging pattern. CT lumbar spine without evidence of acute osseous abnormality. No pathologic enhancement or CT evidence of discitis/osteomyelitis. Small disc bulges at L3-4, L4-5 and L5-S1. L5-S1 moderate bilateral neural fora arti stenosis. Right kidney 4.2 cm cyst. Signed: Darryl Austin MDReport Verif ied Date/Time: 03/17/2020 03:48:21 spine lumbar with IV [id number] 03:48:00Interface, External Ris In - 03/17/2020 3:[address], SPINE, LUMBAR, WITH IV CONTRAST CLINICAL HISTORY: Back pain, uncomplicated (Ped 0-18y)Back Pain, Hx of IVDA and Endocarditis COMPARISON: None TECHNIQUE: Multiple axial CT images of the lumbar spine were obtained with contrast. Sagittal and coronal 2D reconstructions were created. This exam was performed according to our departmental dose-optimization program, which includes automated exposure control, adjustment of the mA and/or kV according to patient size and/or use of the iterative reconstruction technique. FINDINGS:No acute osseous fracture or traumatic malalignment. No suspicious osseous lesion.No paraspinal mass. Right kidney 4.2 cm cyst. No pathologic enhancement. Disc levels:L1-2: No significant disc bulge, central spinal canal or neural foraminal stenosis.L2-3: No significant disc bulge, central spinal canal or neural foraminal stenosis.L3-4: Small disc bulge without high-grade osseous central spinal canal or neural foraminal stenosis.L4-5: Small disc bulge without high-grade osseous central spinal canal or neural foraminal stenosis.L5-S1: Small disc bulge without high-grade osseous central spinal canal stenosis. Moderate bilateral neural foraminal stenosis present. Lungs demonstrate basilar groundglass opacities. Right lung base calcified granuloma. IMPRESSION:Bibasilar pulmonary groundglass opacities. Commonly reported imaging features [...] kidney 4.2 cm cyst. Signed: Darryl Austin MDReport Verified Date/Time: 03/17/2020 03:48:21 [facility] CenterCOMPREHENSIVE METABOL[facility] [id number] 23:57:00* Test Item Value Reference Range Interpretation Comments TOTAL PROTEIN (BEAKER) (test code = 770) 10.0 gm/dL 6.0-8.3 H Specimen markedly hemolyzed [id number] is a corrected result. Previous result was 10.0 gm/dL on 03/16/2020 at 2331 CDT ALBUMIN (BEAKER) (test code = 1145) 3.6 g/dL 3.5-5.0 Specimen markedly hemolyzed B#[id number] is a corrected result. Previous result was 3.6 g/dL on 03/16/2020 at 2331 CDT ALKALINE PHOSPHATASE (BEAKER) (test code = 346) 127 U/L 40-150 Specimen markedly hemolyzed B#[id number] is a corrected result. Previous result was 127 U/L on 03/16/2020 at 2331 CDT BILIRUBIN TOTAL (BEAKER) (test code = 377) 0.3 mg/dL 0.2-1.2 Specimen markedly hemolyzed B#[id number] is a corrected result. Previous result was 0.3 mg/dL on 03/16/2020 at 2331 CDT SODIUM (BEAKER) (test code = 381) 133 meq/L 136-145 L Specimen markedly hemolyzed B#[id number] is a corrected result. Previous result was 133 meq/L on 03/16/2020 at 2331 CDT POTASSIUM (BEAKER) (test code = 379) 5.2 meq/L 3.5-5.1 H Specimen markedly hemolyzed B#[id number] is a corrected result. Previous result was 5.2 meq/L on 03/16/2020 at 2331 CDT CHLORIDE (BEAKER) (test code = 382) 102 meq/L 98-107 Specimen markedly hemolyzed B#[id number] is a corrected result. Previous result was 102 meq/L on 03/16/2020 at 2331 CDT CO2 (BEAKER) (test code = 355) 22 meq/L 22-29 Specimen markedly hemolyzed B#[id number] is a corrected result. Previous result was 22 meq/L on 03/16/2020 at 2331 CDT BLOOD UREA NITROGEN (BEAKER) (test code = 354) 3 mg/dL 7-21 L Specimen markedly hemolyzed B#[id number] is a corrected result. Previous result was 3 mg/dL on 03/16/2020 at 2331 CDT CREATININE (BEAKER) (test code = 358) 0.62 mg/dL 0.57-1.25 Specimen markedly hemolyzed B#[id number] is a corrected result. Previous result was 0.62 mg/dL on 03/16/2020 at 2331 CDT GLUCOSE RANDOM (BEAKER) (test code = 652) 90 mg/dL 70-105 Specimen markedly hemolyzed B#[id number] is a corrected result. Previous result was 90 mg/dL on 03/16/2020 at 2331 CDT CALCIUM (BEAKER) (test code = 697) 9.0 mg/dL 8.4-10.2 Specimen markedly hemolyzed B#[id number] is a corrected result. Previous result was 9.0 mg/dL on 03/16/[address] [place] [address] AST (SGOT) ([facility]) (test code = 353) 69 U/L 5-34 H Specimen markedly hemolyzed B#[id number] is a corrected result. Previous result was 69 U/L on 03/16/[address] [place] [address] ALT (SGPT) ([facility]) (test code = 347) 31 U/L 6-55 Specimen markedly hemolyzed B#[id number] is a corrected result. Previous result was 31 U/L on 03/16/[address] [place], [place] [address]T EGFR ([facility]) (test code = 1092) 157 mL/min/1.73 sq m ESTIMATED GFR IS NOT ACCURATE CREATININE CLEARANCE IN PREDICTING GLOMERULAR FILTRATION RATE. ESTIMATED GFR IS NOT APPLICABLE FOR DIALYSIS PATIENTS.This is a corrected result. Previous result was 157 mL/min/1.73 sq m on 03/16/[address] [place] [address] Internet Sales Associate ID - HAILEY LComprehensive metabolic [id number] 23:57:00Protein, TotalComment: Specimen markedly hemolyzed B#[id number] This is a corrected result. Previous result was 10.0 gm/dL on 03/16/[address] [place], [place] [address]AlbuminComment: Specimen markedly hemolyzed B#[id number] This is a corrected result. Previous result was 3.6 g/dL on 03/16/[address] [place], [place] [address]Alkaline PhosphataseComment: Specimen markedly hemolyzed B#[id number] This is a corrected result. Previous result was 127 U/L on 03/16/[address] [place], [place] [address]Total BilirubinComme nt: Specimen markedly hemolyzed B#[id number] This is a corrected result. Previous re sult was 0.3 mg/dL on 03/16/[address] [place] [address] ERSodiumComment: Specimen markedly hemolyzed B#[id number] This is a corrected result . Previous result was 133 meq/L on 03/16/[address] [place], [place] [address]PotassiumComment: Specimen markedly hemolyzed B#[id number] This is a corrected result. Previous result was 5.2 meq/L on 03/16/[address] [place], [place] [address]ChlorideComment: Specimen markedly hemolyzed B#[id number] This is a corrected result. Previous result was 102 meq/L on 03/16/[address] [place], [place] [address]CO2Comment: Specimen markedly hemo lyzed B#[id number] This is a corrected result. Previous result was 22 meq/L on [address] [place], [place] [address]BUNComment: Specimen keerthi edly hemolyzed B#[id number] This is a corrected result. Previous result was 3 mg/dL on 03/16/[address] [place], [place] [address]CreatinineComment : Specimen markedly hemolyzed B#[id number] This is a corrected result. Previous resu lt was 0.62 mg/dL on 03/16/[address] [place] [address] RGlucoseComment: Specimen markedly hemolyzed B#[id number] This is a corrected result . Previous result was 90 mg/dL on 03/16/[address] [place], [place] [address]CalciumComment: Specimen markedly hemolyzed [id number] This is a cor rected result. Previous result was 9.0 mg/dL on 03/16/[address] [place] [address] CENTERASTComment: Specimen markedly hemolyzed B#[id number] Thi s is a corrected result. Previous result was 69 U/L on 03/16/[address] [place], [place] [address]ALTComment: Specimen markedly hemolyzed B#[id number] This is a corrected result. Previous result was 31 U/L on 03/16/[address] [place], [place] [address]EGFRComment: ESTIMATED GFR IS NOT A CCURATE CREATININE CLEARANCE IN PREDICTING GLOMERULAR FILTRATION RATE. ESTIMA IAN GFR IS NOT APPLICABLE FOR DIALYSIS PATIENTS. This is a corrected result. Pre vious result was 157 mL/min/1.73 sq m on 03/16/2020 at [address] [facility]TCH[facility] CENTEROperator ID - HAILEY L[facility] CenterTropothelma [id number] 23:37:00* Test Item Value Reference Range Interpretation Comments Troponin I (test code = 14362-4) 0.02 ng/mL 0-0.03 GUY (test code = GUY) Troponin I (TnI) levels must be interpreted in the context of the presenting symptoms and the clinical findings. Elevated TnI levels indicate myocardial damage, but are not specific for ischemic heart disease. Elevated TnI levels are seen in patients with other cardiac conditions (including myocarditis and congestive heart failure), and slight TnI elevations occur in patients with other conditions, including sepsis, renal failure, acidosis, acute neurological disease, and persistent tachyarrhythmia.Internet Sales Associate ID - HAILEY L Lab Interpretation (test code = 41693-5) Normal [facility] CenterTRPRISMA HE[facility] B[facility] PARKRIDGE HOSPITALMISBAH [id number] 23:37:00* Test Item Value Reference Range Interpretation Comments TROPONIN I (BEAKER) (test code = 397) 0.02 ng/mL 0.00-0.03 Troponin I (TnI) levels must be interpreted in the context of the presenting sym ptoms and the clinical findings. Elevated TnI levels indicate myocardial damage, but are not specific for ischemic heart disease. Elevated TnI levels are seen i n patients with other cardiac conditions (including myocarditis and congestive h eart failure), and slight TnI elevations occur in patients with other conditions , including sepsis, renal failure, acidosis, acute neurological disease, and per sistent tachyarrhythmia.Internet Sales Associate ID - PIAYA LC-Reactive [id number] 23:31:00* Test Item Value Reference Range Interpretation Comments CRP (test code = 676) 3.96 mg/dL 0-0.5 H GUY (test code = GYU) Internet Sales Associate ID - HAILEY L Lab Interpretation (test code = 67074-9) Abnormal [facility] CenterC-REACTIVE [id number] 23:31:00* Test Item Value Reference Range Interpretation Comments C-REACTIVE PROTEIN (BEAKER) (test code = 676) 3.96 mg/dL 0.00-0.5 0 H Internet Sales Associate LING HART LCBC with platelet count + automated [id number] 23:04:00 * Test Item Value Reference Range Interpretation Comments WBC (test code = 6690-2) 9.6 3.5- 10.5 K/L RBC (test code = 789-8) 4.39 4.63- 6.08 M/L L MCHC (test code = 786-4) 31.2 32.3- 36.5 GM/DL L Hematocrit (test code = 4544-3) 35.3 % 40.1-51 L MCV (test code = 787-2) 80.4 fL 79-92.2 MCH (test code = 785-6) 25.1 pg 25.7-32.2 L RDW (test code = 788-0) 18.6 % 11.6-14.4 H Platelets (test code = 777-3) 322 150- 450 K/CU MM MPV (test code = 07006-8) 11.0 fL 9.4-12.4 nRBC (test code = 413) 0 0- 0 /100 WBC % Neutros (test code = 429) 56 % % Lymphs (test code = 430) 34 % % Monos (test code = 431) 9 % % Eos (test code = 432) 1 % % Baso (test code = 437) 0 % # Neutros (test code = 670) 5.34 1.78- 5.38 K/L # Lymphs (test code = 414) 3.30 1.32- 3.57 K/L # Monos (test code = 415) 0.86 0.30- 0.82 K/L H # Eos (test code = 416) 0.05 0.04- 0.54 K/L # Baso (test code = 417) 0.01 0.01- 0.08 K/L Immature Granulocytes-Relative (test code = 2801) 0 % 0-1 Lab Interpretation (test code = 04351-9) Abnormal [facility] CenterCBC W/PLT COUNT & AUTO [id number] 23:04:00* Test Item Value Reference Range Interpretation Comments WHITE BLOOD CELL COUNT (BEAKER) (test code = 775) 9.6 K/ L 3.5- 10.5 RED BLOOD CELL COUNT (BEAKER) (test code = 761) 4.39 M/ L 4.63-6 .08 L HEMOGLOBIN (BEAKER) (test code = 410) 11.0 GM/DL 13.7-17.5 L HEMATOCRIT (BEAKER) (test code = 411) 35.3 % 40.1-51.0 L MEAN CORPUSCULAR VOLUME (BEAKER) (test code = 753) 80.4 fL 79. 0-92.2 MEAN CORPUSCULAR HEMOGLOBIN (BEAKER) (test code = 751) 25.1 pg 25.7-32.2 L MEAN CORPUSCULAR HEMOGLOBIN CONC (BEAKER) (test code = 752) 31.2 GM/DL 32.3-36.5 L RED CELL DISTRIBUTION WIDTH (BEAKER) (test code = 412) 18.6 % 11.6-14.4 H PLATELET COUNT (BEAKER) (test code = 756) 322 K/CU MM 150-450 MEAN PLATELET VOLUME (BEAKER) (test code = 754) 11.0 fL 9.4-12 .4 NUCLEATED RED BLOOD CELLS (BEAKER) (test code = 413) 0 /100 WBC 0 -0 NEUTROPHILS RELATIVE PERCENT (BEAKER) (test code = 429) 56 % LYMPHOCYTES RELATIVE PERCENT (BEAKER) (test code = 430) 34 % MONOCYTES RELATIVE PERCENT (BEAKER) (test code = 431) 9 % EOSINOPHILS RELATIVE PERCENT (BEAKER) (test code = 432) 1 % BASOPHILS RELATIVE PERCENT (BEAKER) (test code = 437) 0 % NEUTROPHILS ABSOLUTE COUNT (BEAKER) (test code = 670) 5.34 K/ L 1.78-5.38 LYMPHOCYTES ABSOLUTE COUNT (BEAKER) (test code = 414) 3.30 K/ L 1.32-3.57 MONOCYTES ABSOLUTE COUNT (BEAKER) (test code = 415) 0.86 K/ L 0. 30-0.82 H EOSINOPHILS ABSOLUTE COUNT (BEAKER) (test code = 416) 0.05 K/ L 0.04-0.54 BASOPHILS ABSOLUTE COUNT (BEAKER) (test code = 417) 0.01 K/ L 0. 01-0.08 IMMATURE GRANULOCYTES-RELATIVE PERCENT (BEAKER) (test code = 2801) 0 % 0-1 RAD, CHEST, 1 VIEW, NON [id number] 14:52:00Reason for exam:->sobShould this be performed at the bedside?->YesFINAL REPORT INDICATION: sob COMPARISON: None TECHNIQUE: Single frontal view of the chest. FINDINGS: Lungs and pleura: Clear lungs. No effusion.Heart and mediastinum: Normal heart size. Unremarkable mediastinal contours.Osseous structures: No acute abnormality.Other: None. IMPRESSION: No acute intrathoracic abnormality. Signed: Nisha Lee Verified Date/Time: 03/16/2020 14:52:01 Reading Location: [address] Neuro Reading Room chest 1 view portable / [id number] 14:52:00Interface, External Ris In - 03/16/2020 2:54 PM CDTFINAL REPORT INDICATION: sob COMPARISON: None TECHNIQUE: Single frontal view of the chest. FINDINGS: Lungs and pleura: Clear lungs. No effusion.Heart and mediastinum: Normal heart size. Unremarkable mediastinal contours.Osseous structures: No acute abnormality.Other: None. IMPRESSION: No acute intrathoracic abnormality. Signed: Nisha Lee Verified Date/Time: 03/16/2020 14:52:01 Reading Location: [address] Neuro Reading Room [facility] CenterPROTHROMBIN [id number] 12:05:00* Test Item Value Reference Range Interpretation Comments PROTHROMBIN TIME PATIENT (test code = PTP) 13.4 SECONDS 9.2-12.1 H INTERNATIONAL NORMAL RATIO (test code = INR) 1.2 The INR is to be used only for monitoring ORAL ANTICOAGULANTTHERAPY. Indication INR Value1. Prophylaxis/treatment of: Venous Thrombosis, Pulmonary Embolism 2.0 - 3.02. Prevention of systemic embolism from: Tissue heart valves 2.0 - 3.0 Acute myocardial infarction (to present systemic embolism)* 2.0 - 3.0 Valvular heart disease 2.0 - 3.0 Atrial fibrillation 2.0 - 3.03. Mechanical prosthetic valves (high risk) 2.5 - 3.5 * If oral anticoagulant therapy is elected to preventrecurrent myocardial infarction, an INR of 2.5-3.5 isrecommended, consistent with Food and Drug Administrationrecommendations. THROMBOPLASTIN TIME [id number] 12:05:00* Test Item Value Reference Range Interpretation Comments THROMBOPLASTIN TIME PARTIAL (test code = PTT) 36.7 SECONDS 23.4-37. 0 N Therapeutic Range for Heparin EFFECTIVE 03/16/13 Heparin IU/mL aPTT Seconds0.3 64.30.7 88.8 BASIC METABOLIC [id number] 18:22:00* Test Item Value Reference Range Interpretation Comments SODIUM (test code = NA) 137 mmol/L 137-145 N POTASSIUM (test code = K) 3.8 mmol/L 3.4-5.0 N CHLORIDE (test code = CL) 99 mmol/L 98-107 N CARBON DIOXIDE (test code = CO2) 30 mmol/L 22-30 N GLUCOSE (test code = GLU) 108 mg/dL 74-106 H BLOOD UREA NITROGEN (test code = BUN) 5 mg/dL 9-20 L GLOMERULAR FILTRATION RATE (test code = GFR) 214 >60 The estimated glomerular filtration rate is computed usingpatient race, age (>18), sex, and serum creatinine. If anyof the needed data elements are missing the Laboratory cannot compute an estimation of the glomerular filtration rate. CREATININE (test code = CREAT) < 0.5 mg/dL 0.7-1.3 L CALCIUM (test code = CA) 8.8 mg/dL 8.4-10.2 N CBC W/AUTO [id number] 17:56:00* Test Item Value Reference Range Interpretation Comments WHITE BLOOD CELL (test code = WBC) 4.7 x10 3/uL 5.0-12.0 L RED BLOOD CELL (test code = RBC) 3.99 x10 6/uL 4.70-6.10 L HEMOGLOBIN (test code = HGB) 9.4 g/dL 14.0-18.0 L HEMATOCRIT (test code = HCT) 32.4 % 37.0-49.0 L MEAN CELL VOLUME (test code = MCV) 81 fL 80-94 N MEAN CELL HGB (test code = MCH) 23.6 pg 27-31 L MEAN CELL HGB CONCENTRATION (test code = MCHC) 29.0 g/dL 33-37 L RED CELL DISTRIBUTION WIDTH (test code = RDW) 18.7 % 11.5-15. 5 H PLATELET COUNT (test code = PLT) 343 x10 3/uL 130-400 N MEAN PLATELET VOLUME (test code = MPV) 10.0 fL 9.4-16.4 N NEUTROPHIL % (test code = NT%) 47.4 % 43-65 N IMMATURE GRANULOCYTE % (test code = IG%) 1.1 % 0.0-2.0 N LYMPHOCYTE % (test code = LY%) 35.5 % 20.5-45.5 N MONOCYTE % (test code = MO%) 12.4 % 5.5-11.7 H EOSINOPHIL % (test code = EO%) 3.2 % 0.9-2.9 H BASOPHIL % (test code = BA%) 0.4 % 0.2-1.0 N NUCLEATED RBC % (test code = NRBC%) 0.0 % 0-1.0 N NEUTROPHIL # (test code = NT#) 2.22 x10 3/uL 2.2-4.8 N IMMATURE GRANULOCYTE # (test code = IG#) 0.05 x10 3/uL 0-0.03 H LYMPHOCYTE # (test code = LY#) 1.66 x10 3/uL 1.3-2.9 N MONOCYTE # (test code = MO#) 0.58 x10 3/uL 0.3-0.8 N EOSINOPHIL # (test code = EO#) 0.15 x10 3/uL 0.0-0.2 N BASOPHIL # (test code = BA#) 0.02 x10 3/uL 0.0-0.1 N BASIC METABOLIC [id number] 05:18:00* Test Item Value Reference Range Interpretation Comments SODIUM (test code = NA) 135 mmol/L 137-145 L POTASSIUM (test code = K) 3.6 mmol/L 3.4-5.0 N CHLORIDE (test code = CL) 99 mmol/L 98-107 N CARBON DIOXIDE (test code = CO2) 29 mmol/L 22-30 N GLUCOSE (test code = GLU) 82 mg/dL 74-106 N BLOOD UREA NITROGEN (test code = BUN) 3 mg/dL 9-20 L GLOMERULAR FILTRATION RATE (test code = GFR) 214 >60 The estimated glomerular filtration rate is computed usingpatient race, age (>18), sex, and serum creatinine. If anyof the needed data elements are missing the Laboratory cannot compute an estimation of the glomerular filtration rate. CREATININE (test code = CREAT) < 0.5 mg/dL 0.7-1.3 L CALCIUM (test code = CA) 9.0 mg/dL 8.4-10.2 N CBC W/AUTO [id number] 04:57:00* Test Item Value Reference Range Interpretation Comments WHITE BLOOD CELL (test code = WBC) 8.4 x10 3/uL 5.0-12.0 N RED BLOOD CELL (test code = RBC) 3.74 x10 6/uL 4.70-6.10 L HEMOGLOBIN (test code = HGB) 8.9 g/dL 14.0-18.0 L HEMATOCRIT (test code = HCT) 29.8 % 37.0-49.0 L MEAN CELL VOLUME (test code = MCV) 80 fL 80-94 N MEAN CELL HGB (test code = MCH) 23.8 pg 27-31 L MEAN CELL HGB CONCENTRATION (test code = MCHC) 29.9 g/dL 33-37 L RED CELL DISTRIBUTION WIDTH (test code = RDW) 18.7 % 11.5-15. 5 H PLATELET COUNT (test code = PLT) 384 x10 3/uL 130-400 N MEAN PLATELET VOLUME (test code = MPV) 9.6 fL 9.4-16.4 N NEUTROPHIL % (test code = NT%) 56.5 % 43-65 N IMMATURE GRANULOCYTE % (test code = IG%) 1.1 % 0.0-2.0 N LYMPHOCYTE % (test code = LY%) 29.6 % 20.5-45.5 N MONOCYTE % (test code = MO%) 9.9 % 5.5-11.7 N EOSINOPHIL % (test code = EO%) 2.2 % 0.9-2.9 N BASOPHIL % (test code = BA%) 0.7 % 0.2-1.0 N NUCLEATED RBC % (test code = NRBC%) 0.0 % 0-1.0 N NEUTROPHIL # (test code = NT#) 4.73 x10 3/uL 2.2-4.8 N IMMATURE GRANULOCYTE # (test code = IG#) 0.09 x10 3/uL 0-0.03 H LYMPHOCYTE # (test code = LY#) 2.48 x10 3/uL 1.3-2.9 N MONOCYTE # (test code = MO#) 0.83 x10 3/uL 0.3-0.8 H EOSINOPHIL # (test code = EO#) 0.18 x10 3/uL 0.0-0.2 N BASOPHIL # (test code = BA#) 0.06 x10 3/uL 0.0-0.1 N DRUGS OF ABUSE [id number] 11:43:00* Test Item Value Reference Range Interpretation Comments TRICYCLICS QL SQN (test code = TRIUR) NEGATIVE NEG TEST PERFORMED MANUALLY USING [employer] RAPIDTEST TCA.CUTOFF >/= 1000 NG/ML A Positive drug screen result provides only a "PreliminaryPositive" test result.If a confirmation of positive result is necessary, a morespecific confirmatory test must be ordered by the physician. Drug screens are performed for medical (i.e. treatment)purposes only. Unconfirmed screening results must not beused for non-medical purposes (e.g employment testing). UR COCAINE (test code = COCAU) NEGATIVE NEGATIVE CUTOFF >/= 300 NG/ML UR THC CANABINOIDS QL SQN (test code = CANU) NEGATIVE NEGATIVE CUTOFF >/= 20 NG/ML UR AMPHETAMINE QL SQN (test code = AMPHU) NEGATIVE NEGATIVE CUTOFF >/= 500 NG/ML UR BARBITURATE QUAL (test code = BARBQLU) NEGATIVE NEGATIVE CUTOFF >/= 200 NG/ML UR BENZODIAZEPINE (test code = BENZU) NEGATIVE NEGATIVE CUTOFF >/= 200 NG/ML UR OPIATES QUAL (test code = OPIAQLU) POSITIVE NEGATIVE A CUTOFF >/= 300 NG/ML UR PHENCYCLIDINE (PCP) (test code = PHENCU) NEGATIVE NEGATIVE CUTOFF >/= 25 NG/ML DRUGS OF ABUSE [id number] 11:42:00* Test Item Value Reference Range Interpretation Comments TRICYCLICS QL SQN (test code = TRIUR) NEG UR COCAINE (test code = COCAU) NEGATIVE NEGATIVE CUTOFF >/= 300 NG/ML UR THC CANABINOIDS QL SQN (test code = CANU) NEGATIVE NEGATIVE CUTOFF >/= 20 NG/ML UR AMPHETAMINE QL SQN (test code = AMPHU) NEGATIVE NEGATIVE CUTOFF >/= 500 NG/ML UR BARBITURATE QUAL (test code = BARBQLU) NEGATIVE NEGATIVE CUTOFF >/= 200 NG/ML UR BENZODIAZEPINE (test code = BENZU) NEGATIVE NEGATIVE CUTOFF >/= 200 NG/ML UR OPIATES QUAL (test code = OPIAQLU) POSITIVE NEGATIVE A CUTOFF >/= 300 NG/ML UR PHENCYCLIDINE (PCP) (test code = PHENCU) NEGATIVE NEGATIVE CUTOFF >/= 25 NG/ML CREATINE KINASE (CK)2020-02-25 05:28:00* Test Item Value Reference Range Interpretation Comments CREATINE KINASE (CK) (test code = CK) < 30 U/L 55-170 L BASIC METABOLIC [id number] 06:37:00* Test Item Value Reference Range Interpretation Comments SODIUM (test code = NA) 136 mmol/L 137-145 L POTASSIUM (test code = K) 3.9 mmol/L 3.4-5.0 N CHLORIDE (test code = CL) 102 mmol/L 98-107 N CARBON DIOXIDE (test code = CO2) 26 mmol/L 22-30 N GLUCOSE (test code = GLU) 104 mg/dL 74-106 N BLOOD UREA NITROGEN (test code = BUN) 3 mg/dL 9-20 L GLOMERULAR FILTRATION RATE (test code = GFR) 214 >60 The estimated glomerular filtration rate is computed usingpatient race, age (>18), sex, and serum creatinine. If anyof the needed data elements are missing the Laboratory cannot compute an estimation of the glomerular filtration rate. CREATININE (test code = CREAT) < 0.5 mg/dL 0.7-1.3 L CALCIUM (test code = CA) 8.6 mg/dL 8.4-10.2 N [id number] 06:37:00* Test Item Value Reference Range Interpretation Comments MAGNESIUM (test code = MAG) 2.0 mg/dL 1.6-2.3 N CBC W/AUTO [id number] 06:06:00* Test Item Value Reference Range Interpretation Comments WHITE BLOOD CELL (test code = WBC) 9.5 x10 3/uL 5.0-12.0 N RED BLOOD CELL (test code = RBC) 3.10 x10 6/uL 4.70-6.10 L HEMOGLOBIN (test code = HGB) 7.4 g/dL 14.0-18.0 L HEMATOCRIT (test code = HCT) 23.9 % 37.0-49.0 L MEAN CELL VOLUME (test code = MCV) 77 fL 80-94 L MEAN CELL HGB (test code = MCH) 23.9 pg 27-31 L MEAN CELL HGB CONCENTRATION (test code = MCHC) 31.0 g/dL 33-37 L RED CELL DISTRIBUTION WIDTH (test code = RDW) 18.7 % 11.5-15. 5 H PLATELET COUNT (test code = PLT) 388 x10 3/uL 130-400 N MEAN PLATELET VOLUME (test code = MPV) 9.7 fL 9.4-16.4 N NEUTROPHIL % (test code = NT%) 68.3 % 43-65 H IMMATURE GRANULOCYTE % (test code = IG%) 1.7 % 0.0-2.0 N LYMPHOCYTE % (test code = LY%) 19.5 % 20.5-45.5 L MONOCYTE % (test code = MO%) 8.1 % 5.5-11.7 N EOSINOPHIL % (test code = EO%) 1.9 % 0.9-2.9 N BASOPHIL % (test code = BA%) 0.5 % 0.2-1.0 N NUCLEATED RBC % (test code = NRBC%) 0.0 % 0-1.0 N NEUTROPHIL # (test code = NT#) 6.51 x10 3/uL 2.2-4.8 H IMMATURE GRANULOCYTE # (test code = IG#) 0.16 x10 3/uL 0-0.03 H LYMPHOCYTE # (test code = LY#) 1.86 x10 3/uL 1.3-2.9 N MONOCYTE # (test code = MO#) 0.77 x10 3/uL 0.3-0.8 N EOSINOPHIL # (test code = EO#) 0.18 x10 3/uL 0.0-0.2 N BASOPHIL # (test code = BA#) 0.05 x10 3/uL 0.0-0.1 N Novel Coronavirus 2018 [id number] 22:11:00* Test Item Value Reference Range Interpretation Comments Novel Coronavirus 2018 Inhouse (test code = COVNONPUI) Negative Negative Positive results are indicative of the presence nqOFZS-[id number] RNA, clinical correlation with patient historyand other diagnostic information is necessary to determinepatient infection status. Positive results do not rule outbacterial infection or co-infection with other viruses. Negative results do not preclude SARS-CoV-2 infection andshould not be used as the sole basis for patient managementdecisions. Negative results must be combined with otherclinical observations, patient history, and epidemiologicalinformation. Detection of SARS-CoV-2 RNA may be affected bysample collection methods, storage conditions, and/or stageof infection. Viral RNA mutations, vaccinations, antiviraltherapeutics, antibiotics, chemotherapeutic orimmunosuppressant drugs have not been evaluated for effectson detection. Results are for the identification of SARS-CoV-2 RNA usingthe [employer] M2000 System under the FDA Emergency UseAuthorization. The testing is performed by personneltrained in the procedures for the [employer] M2000 moleculardiagnostic SARS-CoV-2 assay in vitro. Testing Criteria: Pre-procedure ScreeningNovel Coronavirus 2019 Inhouse 2020-02-19 22:10:00* Test Item Value Reference Range Interpretation Comments Novel Coronavirus 2019 Inhouse (test code = COVNONPUI) Negative Negative Testing Criteria: Pre-procedure ScreeningBASIC METABOLIC [id number] 05:45:00* Test Item Value Reference Range Interpretation Comments SODIUM (test code = NA) 134 mmol/L 137-145 L POTASSIUM (test code = K) 4.1 mmol/L 3.4-5.0 N CHLORIDE (test code = CL) 99 mmol/L 98-107 N CARBON DIOXIDE (test code = CO2) 26 mmol/L 22-30 N GLUCOSE (test code = GLU) 96 mg/dL 74-106 N BLOOD UREA NITROGEN (test code = BUN) 4 mg/dL 9-20 L GLOMERULAR FILTRATION RATE (test code = GFR) 214 >60 The estimated glomerular filtration rate is computed usingpatient race, age (>18), sex, and serum creatinine. If anyof the needed data elements are missing the Laboratory cannot compute an estimation of the glomerular filtration rate. CREATININE (test code = CREAT) < 0.5 mg/dL 0.7-1.3 L CALCIUM (test code = CA) 8.8 mg/dL 8.4-10.2 N [id number] 05:45:00* Test Item Value Reference Range Interpretation Comments MAGNESIUM (test code = MAG) 1.9 mg/dL 1.6-2.3 N CBC W/AUTO [id number] 05:01:00* Test Item Value Reference Range Interpretation Comments WHITE BLOOD CELL (test code = WBC) 10.2 x10 3/uL 5.0-12.0 N RED BLOOD CELL (test code = RBC) 3.34 x10 6/uL 4.70-6.10 L HEMOGLOBIN (test code = HGB) 8.1 g/dL 14.0-18.0 L HEMATOCRIT (test code = HCT) 25.5 % 37.0-49.0 L MEAN CELL VOLUME (test code = MCV) 76 fL 80-94 L MEAN CELL HGB (test code = MCH) 24.3 pg 27-31 L MEAN CELL HGB CONCENTRATION (test code = MCHC) 31.8 g/dL 33-37 L RED CELL DISTRIBUTION WIDTH (test code = RDW) 18.6 % 11.5-15. 5 H PLATELET COUNT (test code = PLT) 371 x10 3/uL 130-400 N MEAN PLATELET VOLUME (test code = MPV) 10.1 fL 9.4-16.4 N NEUTROPHIL % (test code = NT%) 70.3 % 43-65 H IMMATURE GRANULOCYTE % (test code = IG%) 2.6 % 0.0-2.0 H LYMPHOCYTE % (test code = LY%) 17.5 % 20.5-45.5 L MONOCYTE % (test code = MO%) 7.3 % 5.5-11.7 N EOSINOPHIL % (test code = EO%) 1.7 % 0.9-2.9 N BASOPHIL % (test code = BA%) 0.6 % 0.2-1.0 N NUCLEATED RBC % (test code = NRBC%) 0.0 % 0-1.0 N NEUTROPHIL # (test code = NT#) 7.16 x10 3/uL 2.2-4.8 H IMMATURE GRANULOCYTE # (test code = IG#) 0.26 x10 3/uL 0-0.03 H LYMPHOCYTE # (test code = LY#) 1.78 x10 3/uL 1.3-2.9 N MONOCYTE # (test code = MO#) 0.74 x10 3/uL 0.3-0.8 N EOSINOPHIL # (test code = EO#) 0.17 x10 3/uL 0.0-0.2 N BASOPHIL # (test code = BA#) 0.06 x10 3/uL 0.0-0.1 N CREATINE KINASE (CK)2020-02-17 18:57:00* Test Item Value Reference Range Interpretation Comments CREATINE KINASE (CK) (test code = CK) < 30 U/L 55-170 L BASIC METABOLIC [id number] 06:08:00* Test Item Value Reference Range Interpretation Comments SODIUM (test code = NA) 130 mmol/L 137-145 L POTASSIUM (test code = K) 4.7 mmol/L 3.4-5.0 N CHLORIDE (test code = CL) 98 mmol/L 98-107 N CARBON DIOXIDE (test code = CO2) 23 mmol/L 22-30 N GLUCOSE (test code = GLU) 89 mg/dL 74-106 N BLOOD UREA NITROGEN (test code = BUN) 7 mg/dL 9-20 L GLOMERULAR FILTRATION RATE (test code = GFR) 214 >60 The estimated glomerular filtration rate is computed usingpatient race, age (>18), sex, and serum creatinine. If anyof the needed data elements are missing the Laboratory cannot compute an estimation of the glomerular filtration rate. CREATININE (test code = CREAT) < 0.5 mg/dL 0.7-1.3 L CALCIUM (test code = CA) 8.7 mg/dL 8.4-10.2 N [id number] 06:08:00* Test Item Value Reference Range Interpretation Comments MAGNESIUM (test code = MAG) 1.7 mg/dL 1.6-2.3 N BASIC METABOLIC [id number] 06:04:00* Test Item Value Reference Range Interpretation Comments SODIUM (test code = NA) 130 mmol/L 137-145 L POTASSIUM (test code = K) 4.7 mmol/L 3.4-5.0 N CHLORIDE (test code = CL) 98 mmol/L 98-107 N CARBON DIOXIDE (test code = CO2) 23 mmol/L 22-30 N GLUCOSE (test code = GLU) 89 mg/dL 74-106 N BLOOD UREA NITROGEN (test code = BUN) 7 mg/dL 9-20 L GLOMERULAR FILTRATION RATE (test code = GFR) 214 >60 The estimated glomerular filtration rate is computed usingpatient race, age (>18), sex, and serum creatinine. If anyof the needed data elements are missing the Laboratory cannot compute an estimation of the glomerular filtration rate. CREATININE (test code = CREAT) < 0.5 mg/dL 0.7-1.3 L CALCIUM (test code = CA) 8.7 mg/dL 8.4-10.2 N [id number] 06:04:00* Test Item Value Reference Range Interpretation Comments MAGNESIUM (test code = MAG) mg/dL 1.6-2.3 CBC W/AUTO [id number] 05:48:00* Test Item Value Reference Range Interpretation Comments WHITE BLOOD CELL (test code = WBC) 14.0 x10 3/uL 5.0-12.0 H RED BLOOD CELL (test code = RBC) 3.31 x10 6/uL 4.70-6.10 L HEMOGLOBIN (test code = HGB) 8.1 g/dL 14.0-18.0 L HEMATOCRIT (test code = HCT) 25.3 % 37.0-49.0 L MEAN CELL VOLUME (test code = MCV) 76 fL 80-94 L MEAN CELL HGB (test code = MCH) 24.5 pg 27-31 L MEAN CELL HGB CONCENTRATION (test code = MCHC) 32.0 g/dL 33-37 L RED CELL DISTRIBUTION WIDTH (test code = RDW) 18.6 % 11.5-15. 5 H PLATELET COUNT (test code = PLT) 263 x10 3/uL 130-400 N MEAN PLATELET VOLUME (test code = MPV) 10.0 fL 9.4-16.4 N NEUTROPHIL % (test code = NT%) 70.5 % 43-65 H IMMATURE GRANULOCYTE % (test code = IG%) 4.1 % 0.0-2.0 H LYMPHOCYTE % (test code = LY%) 16.9 % 20.5-45.5 L MONOCYTE % (test code = MO%) 7.0 % 5.5-11.7 N EOSINOPHIL % (test code = EO%) 1.1 % 0.9-2.9 N BASOPHIL % (test code = BA%) 0.4 % 0.2-1.0 N NUCLEATED RBC % (test code = NRBC%) 0.0 % 0-1.0 N NEUTROPHIL # (test code = NT#) 9.89 x10 3/uL 2.2-4.8 H IMMATURE GRANULOCYTE # (test code = IG#) 0.58 x10 3/uL 0-0.03 H LYMPHOCYTE # (test code = LY#) 2.37 x10 3/uL 1.3-2.9 N MONOCYTE # (test code = MO#) 0.98 x10 3/uL 0.3-0.8 H EOSINOPHIL # (test code = EO#) 0.15 x10 3/uL 0.0-0.2 N BASOPHIL # (test code = BA#) 0.06 x10 3/uL 0.0-0.1 N BASIC METABOLIC [id number] 02:28:00* Test Item Value Reference Range Interpretation Comments SODIUM (test code = NA) 123 mmol/L 137-145 L POTASSIUM (test code = K) 3.7 mmol/L 3.4-5.0 N CHLORIDE (test code = CL) 92 mmol/L 98-107 L CARBON DIOXIDE (test code = CO2) 23 mmol/L 22-30 N GLUCOSE (test code = GLU) 100 mg/dL 74-106 N BLOOD UREA NITROGEN (test code = BUN) 4 mg/dL 9-20 L GLOMERULAR FILTRATION RATE (test code = GFR) 214 >60 The estimated glomerular filtration rate is computed usingpatient race, age (>18), sex, and serum creatinine. If anyof the needed data elements are missing the Laboratory cannot compute an estimation of the glomerular filtration rate. CREATININE (test code = CREAT) < 0.5 mg/dL 0.7-1.3 L CALCIUM (test code = CA) 7.7 mg/dL 8.4-10.2 L [id number] 02:28:00* Test Item Value Reference Range Interpretation Comments MAGNESIUM (test code = MAG) 1.8 mg/dL 1.6-2.3 N BASIC METABOLIC [id number] 17:07:00* Test Item Value Reference Range Interpretation Comments SODIUM (test code = NA) 124 mmol/L 137-145 L POTASSIUM (test code = K) 3.8 mmol/L 3.4-5.0 N CHLORIDE (test code = CL) 93 mmol/L 98-107 L CARBON DIOXIDE (test code = CO2) 25 mmol/L 22-30 N GLUCOSE (test code = GLU) 93 mg/dL 74-106 N BLOOD UREA NITROGEN (test code = BUN) 5 mg/dL 9-20 L GLOMERULAR FILTRATION RATE (test code = GFR) 214 >60 The estimated glomerular filtration rate is computed usingpatient race, age (>18), sex, and serum creatinine. If anyof the needed data elements are missing the Laboratory cannot compute an estimation of the glomerular filtration rate. CREATININE (test code = CREAT) < 0.5 mg/dL 0.7-1.3 L CALCIUM (test code = CA) 7.7 mg/dL 8.4-10.2 L [id number] 17:07:00* Test Item Value Reference Range Interpretation Comments MAGNESIUM (test code = MAG) 1.3 mg/dL 1.6-2.3 L BASIC METABOLIC [id number] 17:06:00* Test Item Value Reference Range Interpretation Comments SODIUM (test code = NA) 124 mmol/L 137-145 L POTASSIUM (test code = K) 3.8 mmol/L 3.4-5.0 N CHLORIDE (test code = CL) 93 mmol/L 98-107 L CARBON DIOXIDE (test code = CO2) 25 mmol/L 22-30 N GLUCOSE (test code = GLU) 93 mg/dL 74-106 N BLOOD UREA NITROGEN (test code = BUN) 5 mg/dL 9-20 L GLOMERULAR FILTRATION RATE (test code = GFR) 214 >60 The estimated glomerular filtration rate is computed usingpatient race, age (>18), sex, and serum creatinine. If anyof the needed data elements are missing the Laboratory cannot compute an estimation of the glomerular filtration rate. CREATININE (test code = CREAT) < 0.5 mg/dL 0.7-1.3 L CALCIUM (test code = CA) 7.7 mg/dL 8.4-10.2 L [id number] 17:06:00* Test Item Value Reference Range Interpretation Comments MAGNESIUM (test code = MAG) mg/dL 1.6-2.3 - MRI BRAIN W WO [id number] 11:24:00 FAX: Jason Chavez [phone] [place]: St: ADM Name: PIERRE ESCALANTE [facility] : [birth year] Age/S: 24/M [address] Unit #: [id number] Loc: [address] [place] [address] Phys: Jason Humphreys MD Acct: [id number] Dis Date: Status: ADM IN PHONE #: [phone] Exam Date: 02/11/2020 1030 FAX #: [phone] Reason: brain abcess EXAMS: CPT CODE: [id number] MRI BRAIN W WO CONT 36652 R16 - MRI BRAIN W W O CONT HISTORY: brain abscess TECHNIQUE: Multiplanar multisequence MR images of the brain were obtained before and after intra venous contrast. COMPARISON: Head CT 02/10/2020 FINDIN GS: No abnormal brain parenchymal signal. There is no mass, mass effect or abnormal extra-axial fluid collection. Diffusion-weighted images show no hyperacute, acute or early subacute infarction. T he ventricles are normal in size, shape, and position. There are normal signal voids in the larger intracranial vessels. The paran kevin sinuses and mastoid air cells are predominantly clear. The marrow si gnal pattern is within normal limits. No abnormal brain parenchyma l or leptomeningeal enhancement. IMPRESSION: N o significant intracranial abnormalities. Electronically S igned by Blu Blanco MD on 02/11/2020 at 1124 Reported and signed by: Blu Blanco MD CC: Jason Humphreys MD Technologist: KEERTHI FERRERA Trnohrd Date/Time/By: 02/11/2020 (1124) : By: [email or web address] PAG E 1 Signed Report FAX: Jason Chavez [phone] [place]: St: ADM Name: ALBIN FLOWERS [facility] : 1995 Age/ S: 24/M [address] Unit #: [id number] Loc: [address] [place] [address] Phys: Jason Humphreys MD Acct: [id number] Dis Date: Status: ADM IN PHONE #: [phone] Exam Date: 02/11/2020 1030 FAX #: [phone] Reason: brain abcess EXAMS: CPT CODE: [id number] MRI BRAIN W WO CONT 02790 <Continued> Orig Print D/T: S: 02/11/2020 (1128) PAGE 2 Signed Report AB HIV 1 2 2020-02-11 06:10:00* Test Item Value Reference Range Interpretation Comments AB HIV 1 2 (test code = [id number]) NEGATIVE NEGATIVE COMPREHENSIVE METABOLIC [id number] 05:33:00* Test Item Value Reference Range Interpretation Comments SODIUM (test code = NA) 124 mmol/L 137-145 L POTASSIUM (test code = K) 3.3 mmol/L 3.4-5.0 L CHLORIDE (test code = CL) 92 mmol/L 98-107 L CARBON DIOXIDE (test code = CO2) 24 mmol/L 22-30 N GLUCOSE (test code = GLU) 118 mg/dL 74-106 H BLOOD UREA NITROGEN (test code = BUN) 6 mg/dL 9-20 L GLOMERULAR FILTRATION RATE (test code = GFR) 214 >60 The estimated glomerular filtration rate is computed usingpatient race, age (>18), sex, and serum creatinine. If anyof the needed data elements are missing the Laboratory cannot compute an estimation of the glomerular filtration rate. CREATININE (test code = CREAT) < 0.5 mg/dL 0.7-1.3 L TOTAL PROTEIN (test code = PROT) 6.1 g/dL 6.3-8.2 L ALBUMIN (test code = ALB) 2.3 g/dL 3.5-5.0 L CALCIUM (test code = CA) 7.7 mg/dL 8.4-10.2 L BILIRUBIN TOTAL (test code = BILT) 0.8 mg/dL 0.2-1.3 N BILIRUBIN CONJUGATED (test code = BILCON) 0 mg/dL 0-0.3 N ~~~~~~~~~~~~~~~~~~~~~~~~~~~~~~~~~~~~~~~~~~~~~~~~~~~~~~~~~~~~CONJUGATED BILIRUBIN IS THE REPLACEMENT ASSAY FOR DIRECTBILIRUBIN.~~~~~~~~~~~~~~~~~~~~~~~~~~~~~~~~~~~~~~~~~~~~~~~~~~~~~~~~~~~~ BILIRUBIN UNCONJUGATED (test code = BILUNC) 0.6 mg/dL 0-1.1 N SGOT/AST (test code = AST) 64 U/L 15-46 H SGPT/ALT (test code = ALT) < 13 U/L 13-69 L ALKALINE PHOSPHATASE (test code = ALKP) 73 U/L 38-126 N CBC W/AUTO [id number] 05:24:00* Test Item Value Reference Range Interpretation Comments WHITE BLOOD CELL (test code = WBC) 11.8 x10 3/uL 5.0-12.0 N RED BLOOD CELL (test code = RBC) 3.15 x10 6/uL 4.70-6.10 L HEMOGLOBIN (test code = HGB) 7.6 g/dL 14.0-18.0 L HEMATOCRIT (test code = HCT) 23.1 % 37.0-49.0 L MEAN CELL VOLUME (test code = MCV) 73 fL 80-94 L MEAN CELL HGB (test code = MCH) 24.1 pg 27-31 L MEAN CELL HGB CONCENTRATION (test code = MCHC) 32.9 g/dL 33-37 L RED CELL DISTRIBUTION WIDTH (test code = RDW) 17.2 % 11.5-15. 5 H PLATELET COUNT (test code = PLT) 148 x10 3/uL 130-400 N MEAN PLATELET VOLUME (test code = MPV) 10.9 fL 9.4-16.4 N NEUTROPHIL % (test code = NT%) 76.2 % 43-65 H IMMATURE GRANULOCYTE % (test code = IG%) 2.0 % 0.0-2.0 N LYMPHOCYTE % (test code = LY%) 14.1 % 20.5-45.5 L MONOCYTE % (test code = MO%) 7.2 % 5.5-11.7 N EOSINOPHIL % (test code = EO%) 0.3 % 0.9-2.9 L BASOPHIL % (test code = BA%) 0.2 % 0.2-1.0 N NUCLEATED RBC % (test code = NRBC%) 0.0 % 0-1.0 N NEUTROPHIL # (test code = NT#) 8.95 x10 3/uL 2.2-4.8 H IMMATURE GRANULOCYTE # (test code = IG#) 0.23 x10 3/uL 0-0.03 H LYMPHOCYTE # (test code = LY#) 1.66 x10 3/uL 1.3-2.9 N MONOCYTE # (test code = MO#) 0.85 x10 3/uL 0.3-0.8 H EOSINOPHIL # (test code = EO#) 0.04 x10 3/uL 0.0-0.2 N BASOPHIL # (test code = BA#) 0.02 x10 3/uL 0.0-0.1 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 [id number] 19:36:00* Test Item Value Reference Range Interpretation Comments GLUBED (test code = GLUBED) 126 MG/DL 74-106 H - CT HD/BR W W/O [id number] 11:46:00 FAX: Maira Ny MD [phone] [place]: St: ADM FAX: Jason Chavez [phone] Name: PIERRE FLOWERS [facility] : 1995 Age/S: 24/M [address] Unit: [id number] Loc: C.ICC0 [place] [address] Phys: Jason Humphreys MD Acct: [id number] Dis Date: Status: ADM IN PHONE #: [phone] Exam Date: 02/10/2020 FAX #: [phone] Reason: R/O CANCER EXAMS: CPT CODE: [id number] CT HD/BR W W/O CONT 75597 EXAM: - CT HD/BR W W/O CONT LOCATION: C3 HISTORY: 24 years-year old Male with R/O CANCER TECHNIQUE: C omputerized tomography images from the skull base to the vertex were obtai twila. Coronal and sagittal reformatted images are provided. This exam was performed according to our departmental dose-optimization pr ogram, which includes automated exposure control, adjustment of the mA and /or kV according to patient size and/or use of iterative reconstruction te chnique COMPARISON: None FINDINGS: Br ain: The brain parenchymal architecture is unremarkable. The brain parenc hyma is age appropriate. There is no evidence of an acute territorial infa rct. Hemorrhage: There is no CT evidence of acute intracranial hem orrhage. Mass/edema: There is no CT evidence of mass effect, midli ne shift, or parenchymal edema. Ventricles: There is no evid ence of hydrocephalus. Bones: There is no evidence of acute displa leonard calvarial fracture. Sinuses: The visualized portions of the pa ranasal sinuses and mastoid air cells are free of significant opacificatio n. Other/Soft Tissues: Unremarkable. IMPRESSION: No evidence of intracranial neoplasm. Please note that an MRI is a more sensitive study for this indication. PAGE 1 Signed Report (CONTINUED) FAX: Tammy Ny MD [phone] [place]: St: ADM FAX: Jason Chavez [phone] Name: PIERRE FLOWERS [facility] : 1995 Age/S: 24/M [address] Unit: [id number] Loc: C.[address] [place] [address] Phys: Jason Humphreys MD Acct: [id number] Dis Date: Status: ADM IN PHONE #: [phone] Exam Date: 02/10/2020 1120 FAX #: [phone] Reason: R/O CANCER EXAMS: CPT CODE: [id number] HD/BR W W/O CONT 72220 <Continued> at 1146 Reported and signed by: Fernando Rodriguez MD CC: Maira Beaver MD; Jason Humphreys MD Techn ologist: Erum Ennis Trnscrd Dt/Tm: 0 02/10/2020 (1146) t.SDR.HV2 Orig Print D/T: S: 0 (1149 PAGE 2 Signed Report - CT L-SPINE W/[id number] 11:42:00 FAX: Maira Ny MD [phone] [place]: St: ADM FAX: Jason Chavez [phone] Name: PIERRE FLOWERS [facility] : 1995 Age/S: 24/M [address] Unit: [id number] Loc: C[address] [address] Phys: Jason Humphreys MD Acct: [id number] Dis Date: Status: ADM IN PHONE #: [phone] Exam Date: 02/10/2020 11 28 FAX #: [phone] Reason: R/O CANCER EXAMS: CPT CODE: [id number] CT L-SPINE W/CONTRAST 24699 EXAM: CT LUMBAR SPINE WITH CONTRAST LOCATION: C3 HISTORY: R/O CANCER TECHNIQUE: Axial tomograms throug h the lumbar spine were obtained with intravenous contrast. Sagittal and c oronal reformatted images are provided. This exam was performed according to our departmental dose-optimization program, which includes automated e xposure control, adjustment of the mA and/or kV according to patient size and/or use of iterative reconstruction technique. COMPARISON : None available time of interpretation. FINDINGS: This exam ination does not provide the level of detail that is typically obtained wi th a CT myelogram or MRI. Lumbar spine alignment is maintained. V ertebral body heights are maintained. No fracture. No signi ficant degenerative findings. 4.4 cm cystlike lesion at the superi or pole the right kidney is noted. IMPRESSION: No evidence of carcinoma the lumbar spine. Please note that MRI is mor e sensitive examination for this indication. Electronicall y Signed by Fernando Rodriguez MD on 02/10/2020 at 1142 Repor ian and signed by: Jennifer YANG, Fernando CC: Maira Beaver MD; Jason russell MD Technologist: Erum Ennis Trnscrd Dt/Tm: 02/10/2020 (1142) t.SDR.HV2 O rig Print D/T: S: 02/10/2020 (1145 PAGE 1 Signed Report [id number] 09:13:00* Test Item Value Reference Range Interpretation Comments GLUBED (test code = GLUBED) 118 MG/DL 74-106 H LIPID PROFILE (CORONARY RISK)2020-02-10 08:22:00* Test Item Value Reference Range Interpretation Comments TRIGLYCERIDES (test code = TRIG) 120 mg/dL TRIGLYCERIDES REFERENCE RANGE:Normal: <150 mg/dLBorderline High: 150-199 mg/dLHigh: 200-499 mg/dLVery High: >=500 mg/dL CHOLESTEROL (test code = CHOL) 53 mg/dL CHOLESTEROL REFERENCE RANGE:DESIRABLE: < 200 mg/dLBORDERLINE: 200-239 mg/dLHIGH: >=240 mg/dL HDL CHOLESTEROL (test code = HDL) 7 mg/dL 40-59 L LIPOPROTEIN LDL (test code = LDLC) < 30.00 mg/dL 32-99 L CORONARY RISK FACTOR (test code = RISK) 7.57 CHOL/HDL RISK MALE: 1/2 AVG 3.43 FEMALE: 1/2 AVG 3.27 AVG 4.97 AVG 4.44 2X AVG 9.55 2X AVG 7.05 3X AVG 23.39 3X AVG 11.04~~~~~~~~~~~~~~~~~~~~~~~~~~~~~~~~~~~~~~~~~~~~~~~~~~~~~~~~~~~~National Cholesterol Education (NCEP) Guidelines:~~~~~~~~~~~~~~~~~~~~~~~~~~~~~~~~~~~~~~~~~~~~~~~~~~~~~~~~~~~~ HDL Cholesterol<40mg/dL: HDL Cholesterol (Major risk factor for CHD)>60mg/dL: HDL Cholesterol (Negative risk factor for CHD)40-59mg/dL: Borderline Risk LDL Cholesterol<100mg/dL: Desirable LDL-C tpyhknvosmyil060-491fj/dL: Borderline High Risk LDL-C nsoasgotkdcav927- 189mg/dL: High risk LDL-C concentration HDL-LDL Cholesterol is affected by a number of factors suchas smoking, age and sex.~~~~~~~~~~~~~~~~~~~~~~~~~~~~~~~~~~~~~~~~~~~~~~~~~~~~~~~~~~~~ LIPID PROFILE (CORONARY RISK)2020-02-10 08:10:00* Test Item Value Reference Range Interpretation Comments TRIGLYCERIDES (test code = TRIG) 120 mg/dL TRIGLYCERIDES REFERENCE RANGE:Normal: <150 mg/dLBorderline High: 150-199 mg/dLHigh: 200-499 mg/dLVery High: >=500 mg/dL CHOLESTEROL (test code = CHOL) 53 mg/dL CHOLESTEROL REFERENCE RANGE:DESIRABLE: < 200 mg/dLBORDERLINE: 200-239 mg/dLHIGH: >=240 mg/dL HDL CHOLESTEROL (test code = HDL) 7 mg/dL 40-59 L LIPOPROTEIN LDL (test code = LDLC) mg/dL 32-99 CORONARY RISK FACTOR (test code = RISK) 7.57 CHOL/HDL RISK MALE: 1/2 AVG 3.43 FEMALE: 1/2 AVG 3.27 AVG 4.97 AVG 4.44 2X AVG 9.55 2X AVG 7.05 3X AVG 23.39 3X AVG 11.04~~~~~~~~~~~~~~~~~~~~~~~~~~~~~~~~~~~~~~~~~~~~~~~~~~~~~~~~~~~~National Cholesterol Education (NCEP) Guidelines:~~~~~~~~~~~~~~~~~~~~~~~~~~~~~~~~~~~~~~~~~~~~~~~~~~~~~~~~~~~~ HDL Cholesterol<40mg/dL: HDL Cholesterol (Major risk factor for CHD)>60mg/dL: HDL Cholesterol (Negative risk factor for CHD)40-59mg/dL: Borderline Risk LDL Cholesterol<100mg/dL: Desirable LDL-C plbqljdaobdmf556-314qy/dL: Borderline High Risk LDL-C llhgpgpkwsyro677- 189mg/dL: High risk LDL-C concentration HDL-LDL Cholesterol is affected by a number of factors suchas smoking, age and sex.~~~~~~~~~~~~~~~~~~~~~~~~~~~~~~~~~~~~~~~~~~~~~~~~~~~~~~~~~~~~ LIVER FUNCTION [id number] 08:10:00* Test Item Value Reference Range Interpretation Comments TOTAL PROTEIN (test code = PROT) 6.6 g/dL 6.3-8.2 N ALBUMIN (test code = ALB) 2.6 g/dL 3.5-5.0 L BILIRUBIN TOTAL (test code = BILT) 1.0 mg/dL 0.2-1.3 N BILIRUBIN CONJUGATED (test code = BILCON) 0 mg/dL 0-0.3 N ~~~~~~~~~~~~~~~~~~~~~~~~~~~~~~~~~~~~~~~~~~~~~~~~~~~~~~~~~~~~CONJUGATED BILIRUBIN IS THE REPLACEMENT ASSAY FOR DIRECTBILIRUBIN.~~~~~~~~~~~~~~~~~~~~~~~~~~~~~~~~~~~~~~~~~~~~~~~~~~~~~~~~~~~~ BILIRUBIN UNCONJUGATED (test code = BILUNC) 0.5 mg/dL 0-1.1 N SGOT/AST (test code = AST) 50 U/L 15-46 H SGPT/ALT (test code = ALT) 24 U/L 13-69 N ALKALINE PHOSPHATASE (test code = ALKP) 63 U/L 38-126 N CREATINE KINASE (CK)2020-02-10 08:10:00* Test Item Value Reference Range Interpretation Comments CREATINE KINASE (CK) (test code = CK) 84 U/L 55-170 N - MRI L-SPINE W WO [id number] 07:26:00 [place]: St: ADM Name: PIERRE ESCALANTE [facility] : [birth year] Age/S: 24/M [address] Unit #: [id number] Loc: C.ICC0 [place] [address] Phys: Harlan Turner MD Acct: [id number] Dis Date: Status: ADM IN PHONE #: [phone] Exam Date: 02/10/2020618 FAX #: [phone] Reason: tx 2/2 concern for spinal abscess EXAMS: CPT CODE: [id number] MRI L-SPINE W WO CON 30712 EXAM: MRI lumbar spine with and wi thout contrast HISTORY: tx 2/2 concern for spinal abscess TECHNIQUE: Sagittal and axial MR images of the lumbar spine were obt ained. Motion artifact is present on several sequences. COMPARISO N: None available FINDINGS: Alignment is maintained. Vertebral body heights are normal. Marrow signal is within normal limit s. The conus medullaris terminates at L1. and is normal in morphology and signal intensity. Focal inflammation is identified in the paraspinous mu scles at the level L4-L5. These inflammatory foci do not demonstrate T2 b right centers to suggest fluid collections. 3.3 cm right renal cyst is no ian. L1/2: No significant spinal stenosis or neural foraminal narr owing. L2/3: No significant spinal stenosis or neural foraminal na rrowing. L3/4: No significant spinal stenosis or neural foraminal narrowing. L4/5: Moderate disc desiccation and posterior annular f issure is noted. Mild central canal narrowing due to disc bulge, ligament um flavum thickening. Moderate bilateral foraminal narrowing due to disc bulging. L5/S1: Moderate disc desiccation and posterior jacqueline lar fissure noted. Mild central canal narrowing due to central disc protr usion. Possible mild bilateral foraminal narrowing. IMPRE SSION: No evidence of fluid collection in the lumbar spine, ho wever focal myositis identified in the paraspinous musculature at the le maddi of L4-L5 without drainable component at this time. Recommend contin ued follow-up. Mild degenerative central canal narrowi ng at L4-L5 and L5-S1. Suspect moderate bilateral foraminal na rrowing at L4-L5. Evaluation of the foramina is limited due to the lack of a diagnostic T1 sequence given the severe motion artifact. PAGE 1 Signed Report (CONTINUED) [place]: St: [facility] 1995 Age/S: 24[facility]M [address] Unit #: [id number] Loc: C.I CC0 [place] [address] Phys: Harlan Turner MD Acct: [id number] Dis Date: Status: ADM IN PHONE #: [phone] Exam D ate: 02/10/2020 0619 FAX #: [phone] Reason: t x 2/2 concern for spinal abscess EXAMS: CPT CODE: [id number] MRI L-SPINE W WO CON 52300 <Continued> at 0726 Reported and signed by: Fernando Rodriguez MD CC: Technologist: Eriberto Zamorano Date/Time/By: 02/10/2020 (1777) : By: [email or web address] PAGE 2 Signed Report [place]: [facility]: ADM Name: PIERRE FLOWERS [facility] : 1995 Age/S: 24/M [address] Unit #: [id number] Loc: [address] [place] [address] Phys: Harlan Turner MD Acct: [id number] Dis Date: Status: ADM IN PHONE #: [phone] Exam Date: 02/10/2020618 FAX #: [phone] Reason: tx 2 concern for sp inal abscess EXAMS: CPT CODE: [id number] MRI L-SPINE W WO CON 29197 <Continued> Orig Print D/T: S: 02/10/2020 (3320) PAGE 3 Signed Report - MRI T-SPINE W W/O [id number] 07:17:00 [place]: St: ADM Name: PIERRE ESCALANTE [facility] : [birth year] Age/S: 24/M [address] Unit #: [id number] Loc: MARIELA[address] [place] [id number] Phys: Harlan Turner MD Acct: [id number] Dis Date: Status: ADM IN PHONE #: [phone] Exam Date: 02/10/2020618 FAX #: [phone] Reason: tx 2/2 concern for spinal abscess EXAMS: CPT CODE: [id number] MRI T-SPINE W W/O CONT 75814 EXAM: - MRI T-SPINE W W/O CONT HISTORY: Pain TECHNIQUE: Sagittal and axial MR images of the thoracic spine were obtained. Motion artifact is present on severa l sequences. COMPARISON: None available time of interpretation. FINDINGS: Vertebral heights and alignment are maintain ed. Marrow signal intensity is within normal limits. The thoracic spinal c ord is normal in signal intensity and caliber. There is no s ignificant spinal canal or neuroforaminal narrowing at any level. Incidentally noted multiple cavitary lesions throughout the lungs. IMPRESSION: No fluid collection in the thoracic spine . Motion artifact present throughout the study. Incidentally noted multiple cavitary lesions throughout the lungs co ncerning for septic emboli given the history. at 0717 Reported and s igned by: Fernando Rodriguez MD CC: Technologist: Eriberto Zamoranoohsharda Date/Time/By: 02/10/2020 (0717) : By: [email or web address] PAGE 1 Signed Report [place]: St: ADM Name: NAVJOT FLOWERS [facility] : 1995 Age/S : 24/M [address] Unit #: [id number] Loc: C. ICC0 [place] [address] Phys: Harlan Turner MD Acct: [id number] Dis Date: Status: ADM IN PHONE #: [phone] Exam Date: 02/10/2020618 FAX #: [phone] Reason: tx 2/2 concern for spinal abscess EXAMS: CPT CODE: [id number] MRI T-SPINE W W/O CONT 24761 <Continued> Orig Print D/T: S: 02/10/2020 (1270) PAGE 2 Signed Report - MRI C-SPINE W W/O [id number] 07:14:00 [place]: St: ADM Name: PIERRE ESCALANTE [facility] : [birth year] Age/S: 24/M [address] Unit #: [id number] Loc: C.[address] [place] [address] Phys: Harlan Turner MD Acct: [id number] Dis Date: Status: ADM IN PHONE #: [phone] Exam Date: 02/10/2020618 FAX #: [phone] Reason: tx 2/2 concern for spinal abscess EXAMS: CPT CODE: [id number] MRI C-SPINE W W/O CONT 85031 EXAM: MRI cervical spine with and without contrast HISTORY: Pain, abscess TECHNIQUE: S agittal and axial MR images of the cervical spine were obtained. Motion a rtifact is present on postcontrast sequences. COMPARISON: None ochoa ilable time of interpretation. FINDINGS: Vertebral h eights and alignment are maintained. Marrow signal intensity is within nor mal limits. The cervical spinal cord is normal in signal intensity and shelia iber. No significant central canal or foraminal stenosis. IMPRESSION: 1. No fluid collection in the cervical spi ne. at 0714 Reported and signed by: Fernando Rodriguez MD CC: Technologist: Eriberto Zamorano Trnscrd Date/Time/By: 01/2020 (7114) : By: [email or web address] PAGE 1 Signed R eport [place]: St: ADM Name: PIERRE FLOWERS [facility] : 1995 Age/S: 24/M [address] Unit #: [id number] Loc: C.ICC0 [place] [address] Phys: Harlan Turner MD Acct: [id number] Dis Date: Status: ADM IN PHONE #: [phone] Exam Date: 02/10/2020618 FAX #: [phone] Reason: tx 2 concern for spinal abscess EXAMS: CPT CODE: [id number] MRI C-SPINE W W/O CONT 91619 < Continued> Orig Print D/T: S: 02/10/2020 (0718) PAGE 2 Signed Report PROCALCITONIN (PCT)2020-02-10 06:57:00* Test Item Value Reference Range Interpretation Comments PROCALCITONIN (PCT) (test code = PROCAL) 6.46 NG/ML HH Critical Value reported toFirst Name:[id number] Last Name:RESULTS READ BACK AND VERIFIEDby SEJAL, on 02/10/20, @ 06. Procalcitonin (PCT) Normal Value: <0.05 NG/ML <0.5 NG/ML - low risk of severe sepsis and/or septic shock>2.0 NG/ML - high risk of severe sepsis and/or septic shock PCT concentrations between 0.5 and 2.0 NG/ML should beinterpreted taking into account the patient's history.It is recommended to retest PCT within 6-24 hours if anyconcentrations between 0.5-2.0 NG/ML are obtained. LACTIC [id number] 06:35:00* Test Item Value Reference Range Interpretation Comments LACTIC ACID (test code = LACT) 1.0 mmol/L 0.7-2.0 N Coronavirus 2019 nCoV [id number] 05:35:00* Test Item Value Reference Range Interpretation Comments Coronavirus 2019 nCoV Bedside (test code = [id number]) Negative NEGATIVE This test has been authorized by FDA under an EUA for use byauthorized laboratories; This test has been authorized only for the detection ofnucleic acid from SARS-CoV-2, not for any other viruses orpathogens; and This test is only authorized for the duration of thedeclaration that circumstances exist justifying theauthorization of emergency use of in vitro diagnostic testsfor detection and/or diagnosis of COVID-19 under Stjwzkf450(b)(1) of the Act, 21 U.S.C. 360bbb-3(b)(1), unless theauthorization is terminated or revoked sooner. I attest I have received Administrative Approval to enter the order. YESBASIC METABOLIC [id number] 03:09:00* Test Item Value Reference Range Interpretation Comments SODIUM (test code = NA) 122 mmol/L 137-145 L POTASSIUM (test code = K) 3.4 mmol/L 3.4-5.0 N CHLORIDE (test code = CL) 86 mmol/L 98-107 L CARBON DIOXIDE (test code = CO2) 28 mmol/L 22-30 N GLUCOSE (test code = GLU) 105 mg/dL 74-106 N BLOOD UREA NITROGEN (test code = BUN) 13 mg/dL 9-20 N GLOMERULAR FILTRATION RATE (test code = GFR) 214 >60 The estimated glomerular filtration rate is computed usingpatient race, age (>18), sex, and serum creatinine. If anyof the needed data elements are missing the Laboratory cannot compute an estimation of the glomerular filtration rate. CREATININE (test code = CREAT) < 0.5 mg/dL 0.7-1.3 L CALCIUM (test code = CA) 8.0 mg/dL 8.4-10.2 L [id number] 03:09:00* Test Item Value Reference Range Interpretation Comments LIPASE (test code = LIP) 99 U/L 23-300 N [id number] 03:09:00* Test Item Value Reference Range Interpretation Comments MAGNESIUM (test code = MAG) 2.1 mg/dL 1.6-2.3 N PROTHROMBIN [id number] 03:04:00* Test Item Value Reference Range Interpretation Comments PROTHROMBIN TIME PATIENT (test code = PTP) 22.5 SECONDS 9.2-12.1 H INTERNATIONAL NORMAL RATIO (test code = INR) 2.0 The INR is to be used only for monitoring ORAL ANTICOAGULANTTHERAPY. Indication INR Value1. Prophylaxis/treatment of: Venous Thrombosis, Pulmonary Embolism 2.0 - 3.02. Prevention of systemic embolism from: Tissue heart valves 2.0 - 3.0 Acute myocardial infarction (to present systemic embolism)* 2.0 - 3.0 Valvular heart disease 2.0 - 3.0 Atrial fibrillation 2.0 - 3.03. Mechanical prosthetic valves (high risk) 2.5 - 3.5 * If oral anticoagulant therapy is elected to preventrecurrent myocardial infarction, an INR of 2.5-3.5 isrecommended, consistent with Food and Drug Administrationrecommendations. THROMBOPLASTIN TIME [id number] 03:04:00* Test Item Value Reference Range Interpretation Comments THROMBOPLASTIN TIME PARTIAL (test code = PTT) 31.1 SECONDS 23.4-37. 0 N Therapeutic Range for Heparin EFFECTIVE 03/16/13 Heparin IU/mL aPTT Seconds0.3 64.30.7 88.8 - XR CHEST 1 [id number] 03:03:00 [place]: St: REG Name: PIERRE ESCALANTE [facility] : [birth year] Age/S: 24/M [address] Unit #: [id number] Loc: [place] [address] Phys: Harlan Turner MD Acct: [id number] Dis Date: Status: REG ER PHONE #: [phone] Exam Date: 02/10/2020 0247 FAX #: [phone] Reason: sob EXAMS: CPT CODE: [id number] XR CHEST 1 V [id number] EXAMINATION: - XR CHEST 1 V LOCATION: H61 INDICATION/CLINICAL HISTORY: sob COMPARISON: CT 02/09/2020 from outside facility. TECHNIQUE: F rontal view of the chest. FINDINGS: Lines/device:N one. Cardiomediastinal silhouette: Normal. Pulmonary vasculature: Not congested. Lungs/pleura: Multiple small ovoid ca vitary nodules throughout the bilateral lungs. No consolidation. No pneum othorax or pleural effusion. Upper abdomen: Unremarkable. Regional osseous structures: Intact. IMPRESSION: Multiple cavitary nodules throughout the lungs. Differentials include septic emboli versus Kristal's granulomatosis in a patient of this age. Metastatic disease is less likely. at 0303 Reported and signed by: Prince Mendez MD CC: Technologist: Pankaj De Guzman [facility] Date/Time/By: 02/10/2020 (0303) : By: [email or web address] PAGE 1 Signed Report [place]: St: REG Name: PIERRE FLOWERS : 1995 Age/S: 24/M [address] Unit #: [id number] Loc: [place] [address] Phys: Harlan Turner MD Acct: [id number] Dis Date: Status: R EG ER PHONE #: [phone] Exam Date: 0 02/10/2020 0247 FAX #: [phone] Reason: sob EXAMS: CPT CODE: [id number] XR CHEST 1 V [id number] <Continued> Orig Print D/T: S: 02/10/2020 (4249) PAGE 2 Signed Report CBC W/AUTO [id number] 02:53:00* Test Item Value Reference Range Interpretation Comments WHITE BLOOD CELL (test code = WBC) 17.3 x10 3/uL 5.0-12.0 H RED BLOOD CELL (test code = RBC) 3.61 x10 6/uL 4.70-6.10 L HEMOGLOBIN (test code = HGB) 9.0 g/dL 14.0-18.0 L HEMATOCRIT (test code = HCT) 25.6 % 37.0-49.0 L MEAN CELL VOLUME (test code = MCV) 71 fL 80-94 L MEAN CELL HGB (test code = MCH) 24.9 pg 27-31 L MEAN CELL HGB CONCENTRATION (test code = MCHC) 35.2 g/dL 33-37 N RED CELL DISTRIBUTION WIDTH (test code = RDW) 16.5 % 11.5-15. 5 H PLATELET COUNT (test code = PLT) 164 x10 3/uL 130-400 N MEAN PLATELET VOLUME (test code = MPV) 11.4 fL 9.4-16.4 N NEUTROPHIL % (test code = NT%) 82.5 % 43-65 H IMMATURE GRANULOCYTE % (test code = IG%) 1.6 % 0.0-2.0 N LYMPHOCYTE % (test code = LY%) 9.2 % 20.5-45.5 L MONOCYTE % (test code = MO%) 6.3 % 5.5-11.7 N EOSINOPHIL % (test code = EO%) 0.2 % 0.9-2.9 L BASOPHIL % (test code = BA%) 0.2 % 0.2-1.0 N NUCLEATED RBC % (test code = NRBC%) 0.0 % 0-1.0 N NEUTROPHIL # (test code = NT#) 14.30 x10 3/uL 2.2-4.8 H IMMATURE GRANULOCYTE # (test code = IG#) 0.28 x10 3/uL 0-0.03 H LYMPHOCYTE # (test code = LY#) 1.60 x10 3/uL 1.3-2.9 N MONOCYTE # (test code = MO#) 1.09 x10 3/uL 0.3-0.8 H EOSINOPHIL # (test code = EO#) 0.03 x10 3/uL 0.0-0.2 N BASOPHIL # (test code = BA#) 0.03 x10 3/uL 0.0-0.1 N
== END 2020-04-07 08:25 | disposition home or self-care (01) ==
LOC: ER 07:47
DX: M54.42 Lumbago with sciatica, left side (principal); F17.210 Nicotine dependence, cigarettes, uncomplicated
CPT/HCPCS: 99282